=== PATIENT | female | born 1940 | race Caucasian/White ===

== ENCOUNTER 2016-08-18 08:43 | Day surgery (SDC) | payer MEDICARE ==
[~2016-08-18 08:43] MED LIST: DEXAMETHASONE SOD PHOSPHATE 10 MG/ML 1 ML VIAL IV ONE; FAMOTIDINE 20 MG/2 ML VIAL IV ONE; HYDROmorphone 1 MG/ML 1 ML SYRINGE IVP PRN; LACTATED RINGERS 1,000 ML IV SCH; LIDOCAINE 1% 20 ML VIAL (10MG/ML) FOR IV START INTRADERMA PRN; ONDANSETRON 4 MG/2 ML VIAL IVP ONE; Pre Op ABX Message 1 EACH MISC MISCELLANE ONE
[2016-08-18] MEDS: OXYMETAZOLINE 0.05% NASL SPRAY 15 ML NASAL ONE ×5 (09:50→10:15)
[2016-08-18 09:53] VITALS: RESP 16
[2016-08-18] MEDS ORDERED: ePHEDrine 50 MG/ML 1 ML AMP ONE (10:18)
[2016-08-18] MEDS ORDERED: SUCCINYLCHOLINE CHLORIDE 100 MG/5 ML SYR IV ONE (10:18)
[2016-08-18] MEDS ORDERED: PROPOFOL 10 MG/ML 20 ML VIAL IV ONE (10:18)
[2016-08-18] MEDS ORDERED: fentaNYL (PF) 50 MCG/ML 2 ML AMP ONE (10:18)
[2016-08-18] MEDS ORDERED: MIDAZOLAM 2 MG/2 ML VIAL ONE (10:18)
[2016-08-18] MEDS ORDERED: LIDOCAINE 1%-EPI 1:100,000 20 ML VIAL SQ ONE ×2 (10:32→10:41)
[2016-08-18] MEDS ORDERED: BACITRACIN 500 UNIT/GM OINT 28.4 GM TUBE TOPICAL ONE (10:41)
--- NOTE | 2016-08-18 10:51 | P.OP ---
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 Patient underwent induction of general anesthesia with oral endotracheal intubation without difficulty. The patient was prepped and draped in usual aseptic fashion. Full 0 endoscopic nasal examination was performed bilaterally with the above findings noted. It was elected to cauterize the left anterior septum with suction cautery selectively at a setting of 10. No focal lesion such as hemangioma was noted which may have been resolved from previous cauterization. Excellent hemostasis was noted and bacitracin ointment was placed. The patient was allowed to emerge from anesthesia having tolerated procedure well was extubated operating suite and transferred to postop recovery area in satisfactory condition.
[2016-08-18 11:00] VITALS: TEMP 96.8
[2016-08-18 11:52] VITALS: BP 159/71; PULSE 68
== END 2016-08-18 12:38 | disposition home or self-care (01) ==
LOC: OR 08:43
PROVIDERS: ATTEND Otolaryngology
DX: R04.0 Epistaxis (principal); E78.00 Pure hypercholesterolemia, unspecified; E11.9 Type 2 diabetes mellitus without complications; Z87.891 Personal history of nicotine dependence; Z79.899 Other long term (current) drug therapy; Z83.3 Family history of diabetes mellitus
CPT/HCPCS: 31238; J2250; J1100; J2405; J3010; J1170; J0330; J2704

== ENCOUNTER → 2019-02-05 | Outpatient (CLI) | payer MEDICARE ==
[2019-02-05 14:35] LABS: African American GFR (CKD) >90 (>60 ml/min/1.73 sqM); Blood Urea Nitrogen 18 mg/dL (7-17)
[2019-02-05 15:12] VITALS: RESP 14
--- NOTE | 2019-02-05 15:12 | CT ---
EXAMINATION TYPE: CT chest w con DATE OF EXAM: 02/05/2019 COMPARISON: None HISTORY: Chest pain CT DLP: 148.6 mGycm Automated exposure control for dose reduction was used. CONTRAST: CT scan of the chest is performed, patient injected with 100 mL of Isovue 300. FINDINGS: LUNGS: The lungs are grossly clear, there is no concerning parenchymal mass or nodule identified. Tin y subpleural nodules measuring less than 5 mm are noted. There is a bleb involving the left lower lob e. Subsegmental consolidation most typical of atelectasis. There is no pleural effusion or pneumotho rax seen. The tracheobronchial tree is patent. MEDIASTINUM: There are no greater than 1 cm hilar or mediastinal lymph nodes. No pericardial effusi on is seen. Mild atherosclerotic change of the aorta. Heart size at upper limits of normal. OTHER: Hypertrophic and multilevel degenerative disc disease noted. IMPRESSION: 1. No acute process. 2. There is a less than 5 mm subpleural nodule involving both lung apices to small to characterize bu t likely benign. One year follow-up exam could be obtained to confirm stability as clinically warrant ed. 3. Bleb noted within the left lower lobe.
[2019-02-05 15:47] VITALS: BP 170/80; PULSE 70
== END | disposition home or self-care (01) ==
LOC: RADCTMAIN 14:01
PROVIDERS: ATTEND Internal Medicine
DX: R91.1 Solitary pulmonary nodule (principal); R23.8 Other skin changes
CPT/HCPCS: 82565; 84520; 71260; 36415; Q9967

== ENCOUNTER 2020-08-08 15:45 | Emergency (ER) | payer MEDICARE ==
[2020-08-08 15:59] VITALS: RESP 16
--- NOTE | 2020-08-08 16:47 | XR ---
EXAMINATION TYPE: XR chest 2V DATE OF EXAM: 08/08/2020 COMPARISON: None INDICATION: Headache TECHNIQUE: Frontal and lateral views of the chest are obtained. FINDINGS: The heart size is normal. The pulmonary vasculature is normal. The lungs are clear. IMPRESSION: 1. No acute pulmonary process.
[2020-08-08 16:50] LABS: Basophils # (A) 0.2 k/uL (0-0.2); Basophils % (A) 2 %; Eosinophils # (A) 0.2 k/uL (0-0.7); Eosinophils % (A) 2 %; HCT 43.4 % (34.0-46.0); HGB 14.3 gm/dL (11.4-16.0); Lymphocytes # (A) 2.2 k/uL (1.0-4.8); Lymphocytes % (A) 22 %; MCH 30.1 pg (25.0-35.0); MCV 91.3 fL (80.0-100.0); Mean Platelet Volume 8.9; Monocytes # (A) 0.9 k/uL (0-1.0); Monocytes % (A) 9 %; Neutrophils # (A) 6.3 k/uL (1.3-7.7); Neutrophils % (A) 64 %; Platelet Count 369 k/uL (150-450); RBC 4.75 m/uL (3.80-5.40); RDW 12.4 % (11.5-15.5)
[2020-08-08 16:58] LABS: INR 0.9 (<1.2); Partial Thromboplastin Time 23.6 sec (22.0-30.0); Prothrombin Time 9.9 sec (9.0-12.0)
[2020-08-08 17:09] LABS: ALT 24 U/L (4-34); AST 28 U/L (14-36); African American GFR (CKD) >90 (>60 ml/min/1.73 sqM); Albumin 4.3 g/dL (3.5-5.0); Alkaline Phosphatase 57 U/L (38-126); Anion Gap 7 mmol/L; Blood Urea Nitrogen 21 mg/dL (7-17); Calcium 9.9 mg/dL (8.4-10.2); Carbon Dioxide 26 mmol/L (22-30); Chloride 103 mmol/L (98-107); Glucose 137 mg/dL (74-99); Non-African American GFR(CKD) 82 (>60 ml/min/1.73 sqM); Potassium 4.2 mmol/L (3.5-5.1); Sodium 136 mmol/L (137-145); Total Bilirubin 0.5 mg/dL (0.2-1.3); Total Protein 7.2 g/dL (6.3-8.2)
--- NOTE | 2020-08-08 17:41 | CT ---
EXAMINATION TYPE: CT brain wo con for TPA DATE OF EXAM: 08/08/2020 COMPARISON: None HISTORY: Headache and right sided arm numbness x2 days. CT DLP: 1090.8 mGycm Automated exposure control for dose reduction was used. There is mild cerebral atrophy. There is no mass effect nor midline shift. There is no sign of intrac ranial hemorrhage. The calvarium is intact. There is bilateral large Virchow-Cuong space in the tempo ral lobes. The skull base is intact. There is normal aeration of the mastoid sinuses. IMPRESSION: Mild atrophy. No acute intracranial abnormality.
--- NOTE | 2020-08-08 17:55 | CT ---
EXAMINATION TYPE: CT angio head neck DATE OF EXAM: 08/08/2020 COMPARISON: HISTORY: Headache and right sided arm numbness x2 days. CT DLP: 382.6 mGycm Automated exposure control for dose reduction was used. CONTRAST: Performed with IV Contrast, patient injected with 65ml mL of Isovue 370. Images were obtained from th e aortic arch to the vertex of the brain with 3-D post processed images. There is normal branching pattern of the great vessels on the aortic arch. There is arterial flow in both subclavian arteries. There is arterial flow in the common internal and external carotid arteries bilaterally. There is minimal plaque formation at the carotid artery bifurcations. There is lumen na rrowing less than 15%. There is arterial flow in both vertebral arteries which are fairly symmetric. There is arterial flow in the vertebrobasilar artery system. There is no evidence of carotid or verte bral artery aneurysm or dissection. There is arterial flow in the anterior middle and posterior cerebral arteries. There is no mass effec t. I see no evidence of intracranial aneurysm or neovascularity. There is normal contrast opacificati on of the venous sinuses. There is large left side posterior communicating artery. Left posterior cer ebral artery fills mostly through the posterior communicating artery. I see no evidence of intracrani al arterial stenosis. There are symmetric mildly ectatic intracranial internal carotid arteries. No f ocal aneurysm. IMPRESSION: No evidence of hemodynamic stenosis.
[2020-08-08] MEDS: ONDANSETRON 4 MG/2 ML VIAL IVP STA (17:56)
--- NOTE | 2020-08-08 17:56 | ED ---
Headache HPI - General Chief Complaint: Headache Stated Complaint: headache, parathesias Time Seen by Provider: 08/08/20 16:05 Mode of arrival: ambulatory Limitations: no limitations - History of Present Illness Initial Comments: 80yo female presenting today for cc of headache since 730-8PM. Patient states that lately she has been having flashes of light and squiggly lines at time in vision for the past humberto. pt states that this occurred last night before dinner but this time she had tingling in the right arm it felt as though it was asleep. patient states that that resolved after a few seconds and then a headache started. she states she had pain behind the eyes and by the temples bilaterally. Pt denies speech changes, diplopia, vision loss, nausea, vomiting, neck pain, weakness, sensation deficits. Pt states that she was not dizzy, did not feel off balance. pt denies fevers. patietn states the tingling nevre came back but that headache remained. pt states it is currently 5/10 aching all over. patient took tylenol prior to arrival. Pt denies any other symptoms aside from headache at this time. - Related Data Home Medications Medication Instructions Recorded Confirmed RX: ALPRAZolam [Xanax] 0.25 mg PO BID PRN 07/05/16 08/08/20 Simvastatin [Zocor] 20 mg PO HS 07/05/16 08/08/20 Cholecalciferol [Vitamin D3 (25 1,000 unit PO DAILY 08/08/20 08/08/20 Mcg = 1000 Iu)] Multivit-Min/Iron/Folic/Lutein 1 tab PO DAILY 08/08/20 08/08/20 [Centrum Silver Women Tablet] Pantoprazole [Protonix] 40 mg PO DAILY PRN 08/08/20 08/08/20 RX: Zinc 50 mg PO DAILY 08/08/20 08/08/20 RX: metFORMIN HCL [Glucophage] 500 mg PO HS 08/08/20 08/08/20 Vit C/E/Zn/Coppr/Lutein/Zeaxan 1 tab PO BID 08/08/20 08/08/20 [Preservision Areds 2 Softgel] Allergies Allergy/AdvReac Type Severity Reaction Status Date / Time No Known Allergies Allergy Verified 08/08/20 16:59 Review of Systems ROS Statement: Those systems with pertinent positive or pertinent negative responses have been documented in the HPI. ROS Other: All systems not noted in ROS Statement are negative. Past Medical History Past Medical History: Diabetes Mellitus, Hyperlipidemia, Osteoarthritis (OA) Additional Past Medical History / Comment(s): CURRENT ISSUE: SEVERAL NOSE BLEEDS OVER THE PAST SEVERAL MONTHS, HAS NEVER HAD THEM, DR. NEWMAN HAS CAUTERIZED IN OFFICE. 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 HISTORY IN FAMILY: CELIAC. History of Any Multi-Drug Resistant Organisms: None Reported Past Surgical History: Hysterectomy Additional Past Surgical History / Comment(s): Spleenectomy. Past Anesthesia/Blood Transfusion Reactions: No Reported Reaction Past Psychological History: Anxiety Smoking Status: Never smoker Past Alcohol Use History: None Reported Past Drug Use History: None Reported General Exam - General Exam Comments Initial Comments: General: The patient is awake and alert, in no distress Eye: +3 mm pupils are equal, round and reactive to light, extra-ocular movements are intact. No nystagmus. There is normal conjunctiva bilaterally. No signs of icterus. IOP8 OS and OD (OU) Ears, nose, mouth and throat: There are moist mucous membranes and no oral lesions. Neck: The neck is supple, there is no tenderness or JVD. Cardiovascular: There is a regular rate and rhythm. No murmur, rub or gallop is appreciated. Respiratory: Lungs are clear to auscultation, respirations are non-labored, breath sounds are equal. No wheezes, stridor, rales, or rhonchi. Gastrointestinal: Soft, non-distended, non-tender abdomen without masses or organomegaly noted. There is no rebound or guarding present. Musculoskeletal: Normal ROM, no tenderness. Strength 5/5. Sensation intact. Radial pulses equal bilaterally 2+. Neurological: A&O x 3. CN II-XII intact, memory intact to immediately, inter mediate and manager terminal recall. Able to follow simple verbal. Able to name a common object (pen). High quality, labial (pa) and lingual (la) speech. Low quality posterior pharynx/larynx (ga) voice sounds. Able to express general knowledge (days in a week). No hemineglect or inattention noted. Finger agnosia (-) and spatially oriented (identified L index finger touched R shoulder with L index finger). Light touch a sensation present over the face, chest, abdomen, back, UE bilaterally, and LE bilaterally. Able to localize point during point localization b/l and extinction. No visible bulk atrophy, hypertrophy, fasciculations, or myoclonus of the UE or LE b/l. Full PROM in UE and LE b/l. Bilateral muscle strength 5/5 for the following muscles: deltoid, biceps, triceps, brachioradialis, wrist extensors/flexor, hip flexor, hip abductors/adductors, hamstrings, quadriceps, feet dorsiflexors/plantar flexors. Finger to nose, finger to the examiners finger, and heel to santoro coordinated and accurate b/l. Coordinated and even demonstration of hand flip, finger to thumb, and toe tap b/l. Gait is coordinated and even in stride with tandem. (-) pronator drift. No nuchal rigidity. Skin: Skin is warm and dry and no rashes or lesions are noted. Psychiatric: Cooperative, appropriate mood & affect, normal judgment. Limitations: no limitations Course Vital Signs 08/08/20 08/08/20 15:53 18:03 Temperature 98.6 F 98.0 F Pulse Rate 90 80 Respiratory 16 16 Rate Blood Pressure 164/81 137/73 O2 Sat by Pulse 95 96 Oximetry Medical Decision Making - Medical Decision Making CT, CTA (-). RUSSELL resolved. Other symptoms resolved. parathesias lasted for only few moments. no current visual changes. hx of migraines. family history of complex migraines. pt has had increased screen time/sudoku. patient labs stable. ekg stable. troponin (-). no focalized exam findings. repeat exam no change. pt case discussed with Dr Henderson who is agreeable [facility]u adn return for recurrent symptoms. ddx felt most likely to be consistent with ocular/complex migraine. cannot r/o TIA> advised patient to initiate aspirin daily outpatient MRI, neurology/cardiology f/u with strict return parameters. pt agreeable to this care plan as well as discharge today. - Lab Data Result diagrams: 08/08/20 16:19 08/08/20 16:19 Lab Results 08/08/20 08/08/20 08/08/20 Range/Units 16:19 16:19 16:19 WBC 10.0 (3.8-10.6) k/uL RBC 4.75 (3.80-5.40) m/uL Hgb 14.3 (11.4-16.0) gm/dL Hct 43.4 (34.0-46.0) % MCV 91.3 (80.0-100.0) fL MCH 30.1 (25.0-35.0) pg MCHC 33.0 (31.0-37.0) g/dL RDW 12.4 (11.5-15.5) % Plt Count 369 (150-450) k/uL MPV 8.9 Neutrophils % 64 % Lymphocytes % 22 % Monocytes % 9 % Eosinophils % 2 % Basophils % 2 % Neutrophils # 6.3 (1.3-7.7) k/uL Lymphocytes # 2.2 (1.0-4.8) k/uL Monocytes # 0.9 (0-1.0) k/uL Eosinophils # 0.2 (0-0.7) k/uL Basophils # 0.2 (0-0.2) k/uL PT 9.9 (9.0-12.0) sec INR 0.9 (<1.2) APTT 23.6 (22.0-30.0) sec Sodium 136 L (137-145) mmol/L Potassium 4.2 (3.5-5.1) mmol/L Chloride 103 (98-107) mmol/L Carbon Dioxide 26 (22-30) mmol/L Anion Gap 7 mmol/L BUN 21 H (7-17) mg/dL Creatinine 0.67 (0.52-1.04) mg/dL Est GFR (CKD-EPI)AfAm >90 (>60 ml/min/1.73 sqM) Est GFR (CKD-EPI)NonAf 82 (>60 ml/min/1.73 sqM) Glucose 137 H (74-99) mg/dL Calcium 9.9 (8.4-10.2) mg/dL Total Bilirubin 0.5 (0.2-1.3) mg/dL AST 28 (14-36) U/L ALT 24 (4-34) U/L Alkaline Phosphatase 57 (38-126) U/L Troponin I (0.000-0.034) ng/mL Total Protein 7.2 (6.3-8.2) g/dL Albumin 4.3 (3.5-5.0) g/dL 08/08/20 Range/Units 16:19 WBC (3.8-10.6) k/uL RBC (3.80-5.40) m/uL Hgb (11.4-16.0) gm/dL Hct (34.0-46.0) % MCV (80.0-100.0) fL MCH (25.0-35.0) pg MCHC (31.0-37.0) g/dL RDW (11.5-15.5) % Plt Count (150-450) k/uL MPV Neutrophils % % Lymphocytes % % Monocytes % % Eosinophils % % Basophils % % Neutrophils # (1.3-7.7) k/uL Lymphocytes # (1.0-4.8) k/uL Monocytes # (0-1.0) k/uL Eosinophils # (0-0.7) k/uL Basophils # (0-0.2) k/uL PT (9.0-12.0) sec INR (<1.2) APTT (22.0-30.0) sec Sodium (137-145) mmol/L Potassium (3.5-5.1) mmol/L Chloride (98-107) mmol/L Carbon Dioxide (22-30) mmol/L Anion Gap mmol/L BUN (7-17) mg/dL Creatinine (0.52-1.04) mg/dL Est GFR (CKD-EPI)AfAm (>60 ml/min/1.73 sqM) Est GFR (CKD-EPI)NonAf (>60 ml/min/1.73 sqM) Glucose (74-99) mg/dL Calcium (8.4-10.2) mg/dL Total Bilirubin (0.2-1.3) mg/dL AST (14-36) U/L ALT (4-34) U/L Alkaline Phosphatase (38-126) U/L Troponin I <0.012 (0.000-0.034) ng/mL Total Protein (6.3-8.2) g/dL Albumin (3.5-5.0) g/dL Disposition Clinical Impression: Headache, Arm paresthesia, right Disposition: HOME SELF-CARE Condition: Good Instructions (If sedation given, give patient instructions): Acute Headache (ED) Additional Instructions: Please use medication as discussed. Please follow-up with family doctor in the next 2 days, take baby aspirin daily, please follow-up with cardiology and neurologist for outpatient MRI. return for any return parathesias/new symptoms/worsening headache. Please return to emergency room if the symptoms increase or worsen or for any other concerns. Is patient prescribed a controlled substance at d/c from ED?: No Referrals: Osmany Gregory MD [Primary Care Provider] - 1-2 days Time of Disposition: 18:10
[2020-08-08] MEDS: MORPHINE SULFATE 2 MG/ML SYRINGE IVP STA (17:57)
[2020-08-08 18:04] VITALS: BP 137/73; PULSE 80; TEMP 98
== END 2020-08-08 18:25 | disposition home or self-care (01) ==
LOC: EC 15:45
DX: R51.9 Headache, unspecified (principal); R20.2 Paresthesia of skin; E11.9 Type 2 diabetes mellitus without complications; F41.9 Anxiety disorder, unspecified; E78.5 Hyperlipidemia, unspecified; Z79.84 Long term (current) use of oral hypoglycemic drugs; Z79.899 Other long term (current) drug therapy; Z90.710 Acquired absence of both cervix and uterus; Z90.49 Acquired absence of other specified parts of digestive tract
CPT/HCPCS: 36415; 93005; 80053; 84484; 85025; 85610; 85730; 71046; 70496; 70450; 70498; 99284; 96374; 96375; J2405; J2270; Q9967

== ENCOUNTER → 2022-01-07 | Outpatient (CLI) | payer MEDICARE ==
--- NOTE | 2022-01-07 23:01 | BD ---
EXAMINATION TYPE: Axial Bone Density DATE OF EXAM: 01/07/2022 COMPARISON: NONE CLINICAL HISTORY: 81 years year old Female. ICD-10 CODE: Z13.820 ENCOUNTER FOR SCREENING FOR OSTEOPO ROSIS Height: 58.5 IN Weight: 118 LBS FRAX RISK QUESTIONS: Glucocorticoids (More than 3mos): 5.0 MG /DAY FOR 4 MONTHS (Ex: prednisone, prednisolone, methylprednisolone, dexamethasone, and hydrocortisone). RISK FACTORS HISTORY OF: Active: YES Postmenopausal woman: AGE 54 Take estrogen and/or progesterone medications: NOT NOW How lon YEARS MEDICATIONS: Prednisone or other steroids: 5.0 MG /DAY FOR 4 MONTHS Additional Medications: VIT D,CALCIUM, 5.0 MG /PER DAY OF PREDNISONE, CHOLESTEROL MEDS, MULTI VIT, EY E MEDS, EXAM MEASUREMENTS: Bone mineral densitometry was performed using the [employer] System. Bone mineral density as measured about the Lumbar spine is: ----- L1-L4(G/cm2): 1.011 T Score Values are as follows: ----- L1: -2.0 ----- L2: -1.4 ----- L3: -1.4 ----- L4: -1.0 ----- L1-L4: -1.4 Bone mineral density BASELINE Bone mineral density about the R hip (g/cm2): 0.745 Bone mineral density about the L hip (g/cm2): 0.776 T Score values are as follows: -----R Neck: -2.1 -----L Neck: -1.9 -----R Total: -2.5 -----L Total: -2.2 Bone mineral density BASELINE FRAX%s: The graph provided illustrates a 24.2 chance for a major osteoporotic fx and a 9.1 chance for the hips probability for fx in 10 years time. IMPRESSION: Osteopenia (T Score between -2.5 and -1). There is slightly increased risk of fracture and the patient may be considered for treatment. Re-Screen 2-5 years. NOTE: T-SCORE=SD OF THE YOUNG ADULT MEAN.
== END | disposition home or self-care (01) ==
LOC: RADBDWWP 13:58
PROVIDERS: ATTEND Internal Medicine Rheumatology
DX: Z13.820 Encounter for screening for osteoporosis (principal); M85.89 Other specified disorders of bone density and structure, multiple sites
CPT/HCPCS: 77080

== ENCOUNTER 2023-09-01 06:26 | Emergency (ER) | payer MEDICARE ==
--- NOTE | 2023-09-01 06:48 | ED ---
URI HPI - General Chief Complaint: Upper Respiratory Infection Stated Complaint: Covid+ Time Seen by Provider: 09/01/23 06:46 Source: patient, RN notes reviewed Mode of arrival: ambulatory Limitations: no limitations - History of Present Illness Initial Comments: 83-year-old female presents emergency department chief plaint cough and cold- like symptoms. Patient states she has been sick for 2 days. Patient states that she saw her primary care physician when it started and was given amoxicillin. Patient states that she tested negative for COVID at that time but woke up around 330 not feeling well today and states that she tested positive for COVID-19. Patient states she has sore throat body aches congestion. Denies any chest pain no significant shortness of breath no nausea vomit diarrhea constipation. - Related Data Home Medications Medication Instructions Recorded Confirmed ALPRAZolam [Xanax] 0.25 mg PO BID PRN 07/05/16 08/08/20 Simvastatin [Zocor] 20 mg PO HS 07/05/16 08/08/20 Cholecalciferol [Vitamin D3 (25 1,000 unit PO DAILY 08/08/20 08/08/20 Mcg = 1000 Iu)] Multivit-Min/Iron/Folic/Lutein 1 tab PO DAILY 08/08/20 08/08/20 [Centrum Silver Women Tablet] Pantoprazole [Protonix] 40 mg PO DAILY PRN 08/08/20 08/08/20 Vit C/E/Zn/Coppr/Lutein/Zeaxan 1 tab PO BID 08/08/20 08/08/20 [Preservision Areds 2 Softgel] Zinc 50 mg PO DAILY 08/08/20 08/08/20 metFORMIN HCL [Glucophage] 500 mg PO HS 08/08/20 08/08/20 Previous Rx's Medication Instructions Recorded Amoxicillin 1,000 mg PO Q8H #42 capsule 12/12/21 Nirmatrelvir/Ritonavir [Paxlovid 1 each PO DIRECTED #1 pack 09/01/23 150-100 mg Dose Pack] Allergies Allergy/AdvReac Type Severity Reaction Status Date / Time No Known Allergies Allergy Verified 09/01/23 06:36 Review of Systems ROS Statement: Those systems with pertinent positive or pertinent negative responses have been documented in the HPI. ROS Other: All systems not noted in ROS Statement are negative. Past Medical History Past Medical History: Diabetes Mellitus, Hyperlipidemia, Osteoarthritis (OA) Additional Past Medical History / Comment(s): . 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 HISTORY IN FAMILY: CELIAC. History of Any Multi-Drug Resistant Organisms: None Reported Past Surgical History: Hysterectomy Additional Past Surgical History / Comment(s): Spleenectomy. Past Anesthesia/Blood Transfusion Reactions: No Reported Reaction Past Psychological History: Anxiety Smoking Status: Never smoker Past Alcohol Use History: None Reported Past Drug Use History: None Reported General Exam Limitations: no limitations General appearance: alert, in no apparent distress Head exam: Present: atraumatic, normocephalic, normal inspection Eye exam: Present: normal appearance, PERRL, EOMI. Absent: scleral icterus, conjunctival injection, periorbital swelling ENT exam: Present: normal exam, mucous membranes moist Neck exam: Present: normal inspection, full ROM. Absent: tenderness, meningismus, lymphadenopathy Respiratory exam: Present: normal lung sounds bilaterally. Absent: respiratory distress, wheezes, rales, rhonchi, stridor Cardiovascular Exam: Present: normal rhythm, tachycardia, normal heart sounds. Absent: systolic murmur, diastolic murmur, rubs, gallop, clicks GI/Abdominal exam: Present: soft, normal bowel sounds. Absent: distended, tenderness, guarding, rebound, rigid Course Vital Signs 09/01/23 09/01/23 09/01/23 06:36 08:51 08:55 Temperature 98.4 F 98.1 F Pulse Rate 110 H 104 H Respiratory 20 18 18 Rate Blood Pressure 146/81 138/78 O2 Sat by Pulse 94 L 95 Oximetry Medical Decision Making - Medical Decision Making was pt. sent in by a medical professional or institution (, PA, EXTRAS CASTING DIRECTOR, urgent care, hospital, or halfway...) When possible be specific @ -No Did you speak to anyone other than the patient for history (EMS, parent, family, police, friend...)? What history was obtained from this source @ -No Did you review nursing and triage notes (agree or disagree)? Why? @ -I reviewed and agree with nursing and triage notes Were old charts reviewed (outside hosp., previous admission, EMS record, old EKG, old radiological studies, urgent care reports/EKG's, halfway records)? Report findings @ -No old charts were reviewed Differential Diagnosis (chest pain, altered mental status, abdominal pain women, abdominal pain men, vaginal bleeding, weakness, fever, dyspnea, syncope, headache, dizziness, GI bleed, back pain, seizure, CVA, palpatations, mental health, musculoskeletal)? @ -COVID 19, RSV, influenza, pneumonia, acute bronchitis, URI, this list is not all inclusive EKG interpreted by me (3pts min.). @ -None X-rays interpreted by me (1pt min.). @ -Chest x-ray showed no acute cardiopulmonary process CT interpreted by me (1pt min.). @ -None done U/S interpreted by me (1pt. min.). @ -None done What testing was considered but not performed or refused? (CT, X-rays, U/S, labs)? Why? @ -None What meds were considered but not given or refused? Why? @ -None Did you discuss the management of the patient with other professionals (professionals i.e. , PA, EXTRAS CASTING DIRECTOR, lab, RT, psych nurse, health and social care teacher, asbestos wire finisher, teacher, aoc director combat operations officer, business case analyst)? Give summary @ -No Was smoking cessation discussed for >3mins.? @ -No Was critical care preformed (if so, how long)? @ -No Were there social determinants of health that impacted care today? How? (Homelessness, low income, unemployed, alcoholism, drug addiction, transportation, low edu. Level, literacy, decrease access to med. care, snf, rehab)? @ -No Was there de-escalation of care discussed even if they declined (Discuss DNR or withdrawal of care, Hospice)? DNR status @ -No What co-morbidities impacted this encounter? (DM, HTN, Smoking, COPD, CAD, Cancer, CVA, ARF, Chemo, Hep., AIDS, mental health diagnosis, sleep apnea, morbid obesity)? @ -None Was patient admitted / discharged? Hospital course, mention meds given and route, prescriptions, significant lab abnormalities, going to OR and other pertinent info. @ -Patient tested positive for COVID-19 outpatient patient is vitally stable patient will be discharged with Paxlovid return pressure discussed. Undiagnosed new problem with uncertain prognosis? @ -No Drug Therapy requiring intensive monitoring for toxicity (Heparin, Nitro, Insulin, Cardizem)? @ -No Were any procedures done? @ -No Diagnosis/symptom? @ -[COVID 19 Acute, or Chronic, or Acute on Chronic? @ -Acute Uncomplicated (without systemic symptoms) or Complicated (systemic symptoms)? @ -[Uncomplicated Side effects of treatment? @ -[No Exacerbation, Progression, or Severe Exacerbation? @ -No Poses a threat to life or bodily function? How? (Chest pain, [place], [place], pneumonia, PE, COPD, DKA, ARF, appy, cholecystitis, CVA, Diverticulitis, Homicidal, Suicidal, threat to staff... and all critical care pts) @ -No - Lab Data Result diagrams: 09/01/23 07:39 09/01/23 07:39 Lab Results 09/01/23 09/01/23 Range/Units 07:39 07:39 WBC 9.5 (3.8-10.6) k/uL RBC 4.33 (3.80-5.40) m/uL Hgb 12.8 (11.4-16.0) gm/dL Hct 39.5 (34.0-46.0) % MCV 91.1 (80.0-100.0) fL MCH 29.5 (25.0-35.0) pg MCHC 32.3 (31.0-37.0) g/dL RDW 12.8 (11.5-15.5) % Plt Count 283 (150-450) k/uL MPV 8.3 Neutrophils % 61 % Lymphocytes % 25 % Monocytes % 10 % Eosinophils % 1 % Basophils % 1 % Neutrophils # 5.8 (1.3-7.7) k/uL Lymphocytes # 2.4 (1.0-4.8) k/uL Monocytes # 0.9 (0-1.0) k/uL Eosinophils # 0.1 (0-0.7) k/uL Basophils # 0.1 (0-0.2) k/uL Sodium 135 L (137-145) mmol/L Potassium 3.9 (3.5-5.1) mmol/L Chloride 100 (98-107) mmol/L Carbon Dioxide 26 (22-30) mmol/L Anion Gap 9 mmol/L BUN 17 (7-17) mg/dL Creatinine 0.82 (0.52-1.04) mg/dL Est GFR (CKD-EPI)AfAm 76 (>60 ml/min/1.73 sqM) Est GFR (CKD-EPI)NonAf 66 (>60 ml/min/1.73 sqM) Glucose 189 H (74-99) mg/dL Calcium 9.1 (8.4-10.2) mg/dL Disposition Clinical Impression: COVID-19 Disposition: HOME SELF-CARE Condition: Stable Instructions (If sedation given, give patient instructions): COVID-19 (Coronavirus Disease 2019) (ED) Additional Instructions: Please return to the Emergency Department if symptoms worsen or any other concerns. Prescriptions: Nirmatrelvir/Ritonavir [Paxlovid 150-100 mg Dose Pack] 1 each PO DIRECTED #1 pack Is patient prescribed a controlled substance at d/c from ED?: No Referrals: Eulogio Mathew MD [Primary Care Provider] - 1-2 days Time of Disposition: 08:37
--- NOTE | 2023-09-01 07:17 | XR ---
EXAM: XR Chest, 2 Views CLINICAL HISTORY: ITS.REASON XR Reason: sob TECHNIQUE: Frontal and lateral views of the chest. COMPARISON: 12/12/21 FINDINGS: Lungs: Unremarkable. No consolidation. Pleural space: Unremarkable. No pneumothorax. Heart: Unremarkable. No cardiomegaly. Mediastinum: Unremarkable. Normal mediastinal contour. Bones/joints: Mild degenerative changes of the thoracic spine. No acute fracture. IMPRESSION: No acute findings in the chest.
[2023-09-01 07:51] LABS: Basophils # (A) 0.1 k/uL (0-0.2); Basophils % (A) 1 %; Eosinophils # (A) 0.1 k/uL (0-0.7); Eosinophils % (A) 1 %; HCT 39.5 % (34.0-46.0); HGB 12.8 gm/dL (11.4-16.0); Lymphocytes # (A) 2.4 k/uL (1.0-4.8); Lymphocytes % (A) 25 %; MCH 29.5 pg (25.0-35.0); MCHC 32.3 g/dL (31.0-37.0); MCV 91.1 fL (80.0-100.0); Mean Platelet Volume 8.3; Monocytes # (A) 0.9 k/uL (0-1.0); Monocytes % (A) 10 %; Neutrophils # (A) 5.8 k/uL (1.3-7.7); Neutrophils % (A) 61 %; Platelet Count 283 k/uL (150-450); RBC 4.33 m/uL (3.80-5.40); RDW 12.8 % (11.5-15.5); WBC 9.5 k/uL (3.8-10.6)
[2023-09-01 08:10] LABS: African American GFR (CKD) 76 (>60 ml/min/1.73 sqM); Anion Gap 9 mmol/L; Blood Urea Nitrogen 17 mg/dL (7-17); Calcium 9.1 mg/dL (8.4-10.2); Carbon Dioxide 26 mmol/L (22-30); Chloride 100 mmol/L (98-107); Glucose 189 mg/dL (74-99); Non-African American GFR(CKD) 66 (>60 ml/min/1.73 sqM); Potassium 3.9 mmol/L (3.5-5.1); Sodium 135 mmol/L (137-145)
[2023-09-01 09:12] VITALS: BP 138/78; PULSE 104; RESP 18; TEMP 98.1
== END 2023-09-01 08:55 | disposition home or self-care (01) ==
LOC: EC 06:26
DX: U07.1 COVID-19 (principal); E11.9 Type 2 diabetes mellitus without complications; E78.5 Hyperlipidemia, unspecified; F41.9 Anxiety disorder, unspecified; Z79.84 Long term (current) use of oral hypoglycemic drugs; Z79.899 Other long term (current) drug therapy
CPT/HCPCS: 36415; 71046; 80048; 85025; 99283

== ENCOUNTER 2023-10-28 09:51 | Emergency (ER) | payer MEDICARE ==
[2023-10-28 10:08] VITALS: RESP 18
--- NOTE | 2023-10-28 10:34 | ED ---
Nausea/Vomiting/Diarrhea HPI - General Chief complaint: Nausea/Vomiting/Diarrhea Stated complaint: Abd Pain Time Seen by Provider: 10/28/23 10:33 Source: patient, family, RN notes reviewed Mode of arrival: ambulatory Limitations: no limitations - History of Present Illness Initial comments: Patient is an 83-year-old female presented to the ER with chief complaint of diarrhea. Patient states this been going on since 10/21/23. She reports she has tried taking Imodium without relief. She was seen by PCP, Dr. Hobson, who advised her to start taking probiotics twice daily. She has been taking Imodium and probiotics twice daily without relief. She states she has not really had an appetite and has been feeling nauseous. She reports a gas pressure sensation in her abdomen especially in the lower quadrants. Pain increased after eating. She states some of her bowel movements have been having speckled red blood. Not on blood thinners. Denies fevers but endorses chills. Denies vomiting. 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 Hx of hiatal hernia. Last course in August 2023. Denies any urinary complaints, peripheral edema, chest pain, shortness of breath. - Related Data Home Medications Medication Instructions Recorded Confirmed ALPRAZolam [Xanax] 0.125 - 0.25 mg PO BID PRN 07/05/16 10/28/23 Multivit-Min/Iron/Folic/Lutein 1 tab PO DAILY 08/08/20 10/28/23 [Centrum Silver Women Tablet] Pantoprazole [Protonix] 40 mg PO DAILY PRN 08/08/20 10/28/23 Vit C/E/Zn/Coppr/Lutein/Zeaxan 1 tab PO BID 08/08/20 10/28/23 [Preservision Areds 2 Softgel] Bifidobacterium Infantis [Align] 4 mg PO BID 10/28/23 10/28/23 Calcium Carbonate [Calcium] 600 mg PO Q2D 10/28/23 10/28/23 Cholecalciferol [Vitamin D3 (25 25 mcg PO DAILY 10/28/23 10/28/23 Mcg = 1000 Iu)] Collagen Powder 2 scoop PO DAILY 10/28/23 10/28/23 Loperamide [Imodium] 2 mg PO BID 10/28/23 10/28/23 Loperamide [Imodium] 2 mg PO BID PRN 10/28/23 10/28/23 [place]-3/Dha/Epa/Fish Oil [Fish Oil 1 cap PO Q2D 10/28/23 10/28/23 1,000 mg Softgel] Rosuvastatin Calcium 5 mg PO W/LUNCH 10/28/23 10/28/23 metFORMIN HCL 500 mg PO DIRECTED 10/28/23 10/28/23 Previous Rx's Medication Instructions Recorded Amoxic-Pot Clav 875-125Mg 1 tab PO TID 5 Days #15 tab 10/28/23 [Augmentin 875-125] Allergies Allergy/AdvReac Type Severity Reaction Status Date / Time No Known Allergies Allergy Verified 10/28/23 13:09 Review of Systems ROS Statement: Those systems with pertinent positive or pertinent negative responses have been documented in the HPI. ROS Other: All systems not noted in ROS Statement are negative. Past Medical History Past Medical History: Diabetes Mellitus, Hyperlipidemia, Osteoarthritis (OA) Additional Past Medical History / Comment(s): . 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 HISTORY IN FAMILY: CELIAC. History of Any Multi-Drug Resistant Organisms: None Reported Past Surgical History: Hysterectomy Additional Past Surgical History / Comment(s): Spleenectomy. hiatal hernia Past Anesthesia/Blood Transfusion Reactions: No Reported Reaction Past Psychological History: Anxiety Smoking Status: Never smoker Past Alcohol Use History: None Reported Past Drug Use History: None Reported General Exam General appearance: alert, in no apparent distress Head exam: Present: atraumatic, normocephalic, normal inspection Eye exam: Present: normal appearance, PERRL, EOMI. Absent: scleral icterus, conjunctival injection, periorbital swelling Respiratory exam: Present: normal lung sounds bilaterally. Absent: respiratory distress, wheezes, rales, rhonchi, stridor Cardiovascular Exam: Present: regular rate, normal rhythm, normal heart sounds. Absent: systolic murmur, diastolic murmur, rubs, gallop, clicks GI/Abdominal exam: Present: soft, tenderness (RLQ/LLQ), normal bowel sounds. Absent: distended, guarding, rebound, rigid Rectal exam: Present: normal inspection, normal rectal tone Neurological exam: Present: alert, oriented X3, CN II-XII intact Psychiatric exam: Present: normal affect, normal mood Skin exam: Present: warm, dry, intact, normal color. Absent: rash Course Vital Signs 10/28/23 10/28/23 10/28/23 09:55 12:13 14:05 Temperature 98 F 97.9 F Pulse Rate 108 H 83 82 Respiratory 18 18 18 Rate Blood Pressure 152/87 130/73 115/70 O2 Sat by Pulse 96 96 98 Oximetry Medical Decision Making - Medical Decision Making Was pt. sent in by a medical professional or institution (, PA, HEREDITARY CANCER PROGRAM COORDINATOR, urgent care, hospital, or long-term...) When possible be specific @ -No Did you speak to anyone other than the patient for history (EMS, parent, family, police, friend...)? What history was obtained from this source @ -No Did you review nursing and triage notes (agree or disagree)? Why? @ -I reviewed and agree with nursing and triage notes Were old charts reviewed (outside hosp., previous admission, EMS record, old EKG, old radiological studies, urgent care reports/EKG's, long-term records)? Report findings @ -No old charts were reviewed Differential Diagnosis (chest pain, altered mental status, abdominal pain women, abdominal pain men, vaginal bleeding, weakness, fever, dyspnea, syncope, headache, dizziness, GI bleed, back pain, seizure, CVA, palpatations, mental health, musculoskeletal)? @Differential Abdominal Pain Women: Appendicitis, Cholecystitis, diverticulosis, ischemic bowel, pancreatitis, hepatitis, UTI, gastroenteritis, AAA, incarcerated hernia, bowel obstruction, constipation, inflammatory bowel, hepatitis, peptic ulcer disease, splenic infarction, perforated viscus, vulvitis, ovarian torsion, PID, kidney stone, placenta abruption, this is not meant to be an all-inclusive list EKG interpreted by me (3pts min.). @- None X-rays interpreted by me (1pt min.). @ -None done CT interpreted by me (1pt min.). @ -CT abdomen pelvis significant for diffuse thickening of the wall of the colon greatest in the sigmoid where there is marked diverticulosis. Ischemic bowel cannot be excluded but there is no stenosis or filling defects of the visualized superior mesenteric artery or inferior mesenteric artery. U/S interpreted by me (1pt. min.). @ -None done What testing was considered but not performed or refused? (CT, X-rays, U/S, labs)? Why? @ -C. difficile testing was considered patient was unable to provide stool sa mple What meds were considered but not given or refused? Why? @ -None Did you discuss the management of the patient with other professionals (professionals i.e. , PA, HEREDITARY CANCER PROGRAM COORDINATOR, lab, RT, psych nurse, high school social studies teacher, disability manager, teacher, special forces warrant officer, shoe caser)? Give summary @ -No Was smoking cessation discussed for >3mins.? @ -No Was critical care preformed (if so, how long)? @ -No Were there social determinants of health that impacted care today? How? (Homelessness, low income, unemployed, alcoholism, drug addiction, transportation, low edu. Level, literacy, decrease access to med. care, custodial, rehab)? @ -No Was there de-escalation of care discussed even if they declined (Discuss DNR or withdrawal of care, Hospice)? DNR status @ -No What co-morbidities impacted this encounter? (DM, HTN, Smoking, COPD, CAD, Cancer, CVA, ARF, Chemo, Hep., AIDS, mental health diagnosis, sleep apnea, morb id obesity)? @ -None Was patient admitted / discharged? Hospital course, mention meds given and rou te, prescriptions, significant lab abnormalities, going to OR and other pertinent info. @ -Discharge. Patient is an 83-year-old female presented to the ER with chief complaint of diarrhea and abdominal pain. History and physical exam completed. Vital stable. Patient in no signs of acute distress and nontoxic-appearing. Patient was mildly tender to lower quadrants. Rectal exam completed and chaperoned by Qiana Casey RN. Labs obtained unimpressive. Hyperglycemia believed to be due to from patient holding metformin due to diarrhea. This was instructed by PCP, Dr. Mathew. Urine without signs of infection. Stool occult negative. Flu, RSV, COVID-negative. CT abdomen pelvis significant for diffuse thickening of the wall of the colon greatest in the sigmoid where there is marked diverticulosis. Patient received IV fluids, Zofran and by mouth Lomotil for symptom control in the ER. Results discussed with patient, all questions answered. Extensive conversation with follow-up and return parameters discussed. Due to concern of infection and possible diverticulitis Augmentin was prescribed. I instructed patient on completing full course of antibiotics. Patient was unable to provide stool sample for C.diff testing. Return parameters discussed. Patient discharged stable condition with follow-up to GI/PCP. GI referral given. Patient and family, at bedside, verbally expressed understanding and agreement with care plan. case discussed with ED attending, Dr. Kulkarni. Undiagnosed new problem with uncertain prognosis? @ -No Drug Therapy requiring intensive monitoring for toxicity (Heparin, Nitro, Insulin, Cardizem)? @ -No Were any procedures done? @ -No Diagnosis/symptom? @ -Diverticulitis Acute, or Chronic, or Acute on Chronic? @ -Acute Uncomplicated (without systemic symptoms) or Complicated (systemic symptoms)? @ -Uncomplicated Side effects of treatment? @ -No Exacerbation, Progression, or Severe Exacerbation? @ -No Poses a threat to life or bodily function? How? (Chest pain, [place], [place], pneumonia, PE, COPD, DKA, ARF, appy, cholecystitis, CVA, Diverticulitis, Homicidal, Suicidal, threat to staff... and all critical care pts) @ -No - Lab Data Result diagrams: 10/28/23 10:35 10/28/23 10:35 Lab Results 10/28/23 10/28/23 10/28/23 Range/Units 10:35 10:35 10:35 WBC 9.6 (3.8-10.6) k/uL RBC 4.78 (3.80-5.40) m/uL Hgb 13.8 (11.4-16.0) gm/dL Hct 43.2 (34.0-46.0) % MCV 90.3 (80.0-100.0) fL MCH 28.8 (25.0-35.0) pg MCHC 31.9 (31.0-37.0) g/dL RDW 13.0 (11.5-15.5) % Plt Count 457 H (150-450) k/uL MPV 9.8 Neutrophils % 53 % Lymphocytes % 26 % Monocytes % 15 % Eosinophils % 4 % Basophils % 0 % Neutrophils # 5.0 (1.3-7.7) k/uL Lymphocytes # 2.5 (1.0-4.8) k/uL Monocytes # 1.4 H (0-1.0) k/uL Eosinophils # 0.4 (0-0.7) k/uL Basophils # 0.0 (0-0.2) k/uL Sodium 139 (137-145) mmol/L Potassium 4.0 (3.5-5.1) mmol/L Chloride 107 (98-107) mmol/L Carbon Dioxide 20 L (22-30) mmol/L Anion Gap 12 mmol/L BUN 25 H (7-17) mg/dL Creatinine 0.87 (0.52-1.04) mg/dL Est GFR (CKD-EPI)AfAm 70 (>60 ml/min/1.73 sqM) Est GFR (CKD-EPI)NonAf 61 (>60 ml/min/1.73 sqM) Glucose 197 H (74-99) mg/dL Plasma Lactic Acid Yuriy (0.7-2.0) mmol/L Calcium 9.7 (8.4-10.2) mg/dL Total Bilirubin 0.6 (0.2-1.3) mg/dL AST 23 (14-36) U/L ALT 18 (4-34) U/L Alkaline Phosphatase 70 (38-126) U/L Total Protein 7.3 (6.3-8.2) g/dL Albumin 4.1 (3.5-5.0) g/dL Amylase 47 (30-110) U/L Lipase 58 (23-300) U/L Urine Color Urine Appearance (Clear) Urine pH (5.0-8.0) Ur Specific [place] (1.001-1.035) Urine Protein (Negative) Urine Glucose (UA) (Negative) Urine Ketones (Negative) Urine Blood (Negative) Urine Nitrite (Negative) Urine Bilirubin (Negative) Urine Urobilinogen (<2.0) mg/dL Ur Leukocyte Esterase (Negative) Urine RBC (0-5) /hpf Urine WBC (0-5) /hpf Ur Squamous Epith Cells (0-4) /hpf Urine Bacteria (None) /hpf Urine Mucus (None) /hpf Stool Occult Blood Negative (Negative) Influenza Type A (PCR) (Not Detectd) Influenza Type B (PCR) (Not Detectd) RSV (PCR) (Not Detectd) SARS-CoV-2 (PCR) (Not Detectd) 10/28/23 10/28/23 10/28/23 Range/Units 10:35 10:35 13:17 WBC (3.8-10.6) k/uL RBC (3.80-5.40) m/uL Hgb (11.4-16.0) gm/dL Hct (34.0-46.0) % MCV (80.0-100.0) fL MCH (25.0-35.0) pg MCHC (31.0-37.0) g/dL RDW (11.5-15.5) % Plt Count (150-450) k/uL MPV Neutrophils % % Lymphocytes % % Monocytes % % Eosinophils % % Basophils % % Neutrophils # (1.3-7.7) k/uL Lymphocytes # (1.0-4.8) k/uL Monocytes # (0-1.0) k/uL Eosinophils # (0-0.7) k/uL Basophils # (0-0.2) k/uL Sodium (137-145) mmol/L Potassium (3.5-5.1) mmol/L Chloride (98-107) mmol/L Carbon Dioxide (22-30) mmol/L Anion Gap mmol/L BUN (7-17) mg/dL Creatinine (0.52-1.04) mg/dL Est GFR (CKD-EPI)AfAm (>60 ml/min/1.73 sqM) Est GFR (CKD-EPI)NonAf (>60 ml/min/1.73 sqM) Glucose (74-99) mg/dL Plasma Lactic Acid Yuriy 1.2 (0.7-2.0) mmol/L Calcium (8.4-10.2) mg/dL Total Bilirubin (0.2-1.3) mg/dL AST (14-36) U/L ALT (4-34) U/L Alkaline Phosphatase (38-126) U/L Total Protein (6.3-8.2) g/dL Albumin (3.5-5.0) g/dL Amylase (30-110) U/L Lipase (23-300) U/L Urine Color Colorless Urine Appearance Clear (Clear) Urine pH 5.0 (5.0-8.0) Ur Specific [place] >1.050 H (1.001-1.035) Urine Protein Negative (Negative) Urine Glucose (UA) Negative (Negative) Urine Ketones Negative (Negative) Urine Blood Negative (Negative) Urine Nitrite Negative (Negative) Urine Bilirubin Negative (Negative) Urine Urobilinogen <2.0 (<2.0) mg/dL Ur Leukocyte Esterase Large H (Negative) Urine RBC 3 (0-5) /hpf Urine WBC 5 (0-5) /hpf Ur Squamous Epith Cells 4 (0-4) /hpf Urine Bacteria Rare H (None) /hpf Urine Mucus Rare H (None) /hpf Stool Occult Blood (Negative) Influenza Type A (PCR) Not Detected (Not Detectd) Influenza Type B (PCR) Not Detected (Not Detectd) RSV (PCR) Not Detected (Not Detectd) SARS-CoV-2 (PCR) Not Detected (Not Detectd) - Radiology Data Radiology results: report reviewed, image reviewed Disposition Clinical Impression: Diverticulitis, Diarrhea Disposition: HOME SELF-CARE Condition: Stable Instructions (If sedation given, give patient instructions): Diverticulitis (DC), Acute Diarrhea (ED) Additional Instructions: Please complete full course of Augmentin. Follow-up with GI, Dr. Flores, and PCP. Return to the ER for any new or worsening concerns. Prescriptions: Amoxic-Pot Clav 875-125Mg [Augmentin 875-125] 1 tab PO TID 5 Days #15 tab Is patient prescribed a controlled substance at d/c from ED?: No Referrals: Eulogio Mathew MD [Primary Care Provider] - 1-2 days Monica Flores MD [STAFF PHYSICIAN] - 1-2 days Time of Disposition: 13:55
[2023-10-28] MEDS: ONDANSETRON 4 MG/2 ML VIAL IVP STA (10:37)
[2023-10-28] MEDS: SODIUM CHLORIDE 0.9% 500 ML 500 ML IV STA (10:37)
[2023-10-28] MEDS: DIPHENOX-ATROP 2.5-0.025 MG 1 EACH TAB PO STA (10:38)
[2023-10-28 11:03] LABS: Basophils % (A) 0 %; Eosinophils # (A) 0.4 k/uL (0-0.7); Eosinophils % (A) 4 %; HCT 43.2 % (34.0-46.0); HGB 13.8 gm/dL (11.4-16.0); Lymphocytes # (A) 2.5 k/uL (1.0-4.8); Lymphocytes % (A) 26 %; MCH 28.8 pg (25.0-35.0); MCHC 31.9 g/dL (31.0-37.0); MCV 90.3 fL (80.0-100.0); Mean Platelet Volume 9.8; Monocytes # (A) 1.4 k/uL (0-1.0); Monocytes % (A) 15 %; Neutrophils % (A) 53 %; Platelet Count 457 k/uL (150-450); RBC 4.78 m/uL (3.80-5.40); WBC 9.6 k/uL (3.8-10.6)
[2023-10-28 11:37] LABS: ALT 18 U/L (4-34); AST 23 U/L (14-36); African American GFR (CKD) 70 (>60 ml/min/1.73 sqM); Albumin 4.1 g/dL (3.5-5.0); Alkaline Phosphatase 70 U/L (38-126); Amylase 47 U/L (30-110); Anion Gap 12 mmol/L; Blood Urea Nitrogen 25 mg/dL (7-17); Calcium 9.7 mg/dL (8.4-10.2); Carbon Dioxide 20 mmol/L (22-30); Chloride 107 mmol/L (98-107); Glucose 197 mg/dL (74-99); Lipase 58 U/L (23-300); Non-African American GFR(CKD) 61 (>60 ml/min/1.73 sqM); Sodium 139 mmol/L (137-145); Total Bilirubin 0.6 mg/dL (0.2-1.3); Total Protein 7.3 g/dL (6.3-8.2)
--- NOTE | 2023-10-28 12:29 | CT ---
EXAMINATION TYPE: CT abdomen pelvis w con DATE OF EXAM: 10/28/2023 COMPARISON: None HISTORY: abdominal pain and diarrhea x [address] DLP: 549 mGycm Automated exposure control for dose reduction was used. TECHNIQUE: Helical acquisition of images was performed from the lung bases through the pelvis. CONTRAST: Performed without Oral Contrast and with IV Contrast, patient injected with 100 ml mL of Isovue 300. FINDINGS: The lung bases are clear. There is a small hiatal hernia. Gallbladder is unremarkable and there are no gallstones, wall thickening, distention or pericholecyst ic fluid. There is no biliary ductal dilatation. There is no focal mass organomegaly involving the liver, pancreas or adrenal glands. 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 There is no retroperitoneal adenopathy or hemorrhage in the caliber of the abdominal aorta is normal. The bowel loops are normal in caliber there's no evidence of obstruction. There is diffuse thickening of the all of the colon which becomes thicker in the distal descending colon and sigmoid colon. Ther e is marked diverticulosis and marked thickening of the bowel wall in the sigmoid colon. There is no inflammatory change in the pericolic fat. There is no abscess. There is no free intraperitoneal air o r fluid. There is no pelvic mass or adenopathy. There is surgical absence of the uterus. No focal osseous lesions are seen. IMPRESSION: Diffuse thickening of the wall of the colon greatest in the sigmoid colon where there is marked diver ticulosis. Findings are nonspecific and could represent ischemic bowel, acute diverticulitis or infla mmatory bowel disease. Although ischemic bowel cannot be excluded, there is no stenosis or filling de fects within the visualized superior mesenteric artery or inferior mesenteric artery so the findings favor inflammation from diverticulitis or inflammatory bowel disease.
[2023-10-28 14:19] VITALS: BP 115/70; PULSE 82; TEMP 97.9
[2023-10-28 14:23] LABS: Appearance,Urine Clear (Clear); Bacteria,Urine Rare /hpf; Bilirubin,Urine Negative (Negative); Blood,Urine Negative (Negative); Color,Urine Colorless; Glucose,Urine (UA) Negative (Negative); Ketones,Urine Negative (Negative); Leukocyte Esterase,Urine Large (Negative); Mucus,Urine Rare /hpf; Nitrite,Urine Negative (Negative); Protein,Urine Negative (Negative); RBC,Urine 3 /hpf (0-5); Squamous Epithelial Cell,Urine 4 /hpf (0-4); Urobilinogen,Urine <2.0 mg/dL (<2.0); WBC,Urine 5 /hpf (0-5)
[2023-10-28 14:24] LABS: Specific Gravity,Urine >1.050 (1.001-1.035)
== END 2023-10-28 14:16 | disposition home or self-care (01) ==
LOC: EC 09:51
DX: K57.32 Diverticulitis of large intestine without perforation or abscess without bleeding (principal)
CPT/HCPCS: 36415; 80053; 82150; 83605; 83690; 85025; 82272; 81001; 87636; 74177; 99284; 96374; 96361; J2405; Q9967

== ENCOUNTER 2023-10-29 08:39 | Emergency (ER) | payer MEDICARE ==
[2023-10-29] MEDS: SODIUM CHLORIDE 0.9% 1,000 ML IV STA (09:16)
--- NOTE | 2023-10-29 09:23 | ED ---
General Adult HPI - General Chief complaint: Weakness Stated complaint: reaction to medication Time Seen by Provider: 10/29/23 08:50 Source: patient, family, RN notes reviewed Mode of arrival: ambulatory Limitations: no limitations - History of Present Illness Initial comments: This is an 83-year-old female who presents to the emergency department for we akness and bodyaches. Patient was evaluated here yesterday for abdominal pain and diarrhea. She was diagnosed with suspected diverticulitis and started on Augmentin. She also started taking probiotics and Imodium for the diarrhea. Feels like the diarrhea and abdominal pain have improved, however when she woke up this morning she had body aches. She is concerned that this may be a reaction to the Augmentin. She has however taken Amoxicillin in the past without any problems. States that she may have had a fever last night, but did not measure any this morning. - Related Data Home Medications Medication Instructions Recorded Confirmed ALPRAZolam [Xanax] 0.125 - 0.25 mg PO BID PRN 07/05/16 10/28/23 Multivit-Min/Iron/Folic/Lutein 1 tab PO DAILY 08/08/20 10/28/23 [Centrum Silver Women Tablet] Pantoprazole [Protonix] 40 mg PO DAILY PRN 08/08/20 10/28/23 Vit C/E/Zn/Coppr/Lutein/Zeaxan 1 tab PO BID 08/08/20 10/28/23 [Preservision Areds 2 Softgel] Bifidobacterium Infantis [Align] 4 mg PO BID 10/28/23 10/28/23 Calcium Carbonate [Calcium] 600 mg PO Q2D 10/28/23 10/28/23 Cholecalciferol [Vitamin D3 (25 25 mcg PO DAILY 10/28/23 10/28/23 Mcg = 1000 Iu)] Collagen Powder 2 scoop PO DAILY 10/28/23 10/28/23 Loperamide [Imodium] 2 mg PO BID 10/28/23 10/28/23 Loperamide [Imodium] 2 mg PO BID PRN 10/28/23 10/28/23 Buckley-3/Dha/Epa/Fish Oil [Fish Oil 1 cap PO Q2D 10/28/23 10/28/23 1,000 mg Softgel] Rosuvastatin Calcium 5 mg PO W/LUNCH 10/28/23 10/28/23 metFORMIN HCL 500 mg PO DIRECTED 10/28/23 10/28/23 Previous Rx's Medication Instructions Recorded Amoxic-Pot Clav 875-125Mg 1 tab PO TID 5 Days #15 tab 10/28/23 [Augmentin 875-125] Ciprofloxacin HCl [Cipro] 500 mg PO Q12HR 10 Days #20 tab 10/29/23 Ketorolac [Toradol] 10 mg PO Q8HR PRN #10 tab 10/29/23 metroNIDAZOLE [Flagyl] 500 mg PO TID 10 Days #30 tab 10/29/23 Allergies Allergy/AdvReac Type Severity Reaction Status Date / Time No Known Allergies Allergy Verified 10/29/23 08:49 Review of Systems ROS Statement: Those systems with pertinent positive or pertinent negative responses have been documented in the HPI. ROS Other: All systems not noted in ROS Statement are negative. Past Medical History Past Medical History: Diabetes Mellitus, Hyperlipidemia, Osteoarthritis (OA) Additional Past Medical History / Comment(s): . 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 HISTORY IN FAMILY: CELIAC. History of Any Multi-Drug Resistant Organisms: None Reported Past Surgical History: Hysterectomy Additional Past Surgical History / Comment(s): Spleenectomy. hiatal hernia Past Anesthesia/Blood Transfusion Reactions: No Reported Reaction Past Psychological History: Anxiety Smoking Status: Never smoker Past Alcohol Use History: None Reported Past Drug Use History: None Reported General Exam Limitations: no limitations General appearance: alert, in no apparent distress Head exam: Present: atraumatic, normocephalic, normal inspection Respiratory exam: Present: normal lung sounds bilaterally. Absent: respiratory distress, wheezes, rales, rhonchi, stridor Cardiovascular Exam: Present: normal rhythm, tachycardia, normal heart sounds. Absent: systolic murmur, diastolic murmur, rubs, gallop, clicks GI/Abdominal exam: Present: soft, normal bowel sounds. Absent: distended, tenderness, guarding, rebound, rigid Neurological exam: Present: alert, oriented X3, CN II-XII intact Psychiatric exam: Present: normal affect, normal mood Skin exam: Present: warm, dry, intact, normal color. Absent: rash Course Vital Signs 10/29/23 10/29/23 10/29/23 08:44 08:59 10:49 Temperature 98.7 F Pulse Rate 119 H 115 H 65 Respiratory 18 20 16 Rate Blood Pressure 95/63 125/76 130/68 O2 Sat by Pulse 95 95 98 Oximetry 10/29/23 13:35 Temperature Pulse Rate 75 Respiratory 16 Rate Blood Pressure 135/68 O2 Sat by Pulse 98 Oximetry Medical Decision Making - Medical Decision Making This is an 83 year old female who presents to the emergency department for body aches. Was pt. sent in by a medical professional or institution? @ -No Did you speak to anyone other than the patient for history? @ -No Did you review nursing and triage notes? @ -Yes, and I agree, it is accurate with regards to the patient's symptoms. Were old charts reviewed? @ -CT scan of the abdomen and pelvis from 10/28/23 demonstrating diffuse thickening in the wall of the colon, greatest in the sigmoid colon. Findings were said to be nonspecific and could represent ischemic bowel, diverticulitis, or inflammatory bowel disease, however ischemic bowel was felt to be less likely. Differential Diagnosis? @ -Differential Body Aches: Viral illness, injury, dehydration, electrolyte abnormality, this is not meant to be an all-inclusive list. EKG interpreted by me (3pts min.)? @ -Not obtained X-rays interpreted by me (1pt min.)? @ -Not obtained CT interpreted by me (1pt min.)? @ -Not obtained U/S interpreted by me (1pt. min.)? @ -Not obtained What testing was considered but not performed? (CT, X-rays, U/S, labs)? Why? @ -None What meds were considered but not given? Why? @ -None Did you discuss the management of the patient with other professionals? @ -No Did you reconcile home meds? @ -No Was smoking cessation discussed for >3mins.? @ -No Was critical care preformed (if so, how long)? @ -No Were there social determinants of health that impacted care today? How? (Homelessness, low income, unemployed, alcoholism, drug addiction, transportation, low edu. Level, literacy, decrease access to med. care, skilled nursing, rehab)? @ -No Was there de-escalation of care discussed even if they declined? (Discuss DNR or withdrawal of care, Hospice)? @ -No What co-morbidities impacted this encounter? (DM, HTN, Smoking, COPD, CAD, Cancer, CVA, Hep., AIDS, mental health diagnosis, sleep apnea, morbid obesity)? @ -DM, osteoarthritis, asplenia Was patient admitted / discharged? @ -Discharged. Lab work demonstrates mild leukocytosis and signs of mild dehydration. Urinalysis potentially suggestive of infection with leukocyte esterase and elevated white blood cells. Urine sent for culture. COVID, in fluenza, and RSV testing were negative. Patient given IV fluids and Toradol with significant relief in symptoms. Discussed with the patient that this may have been a medication reaction, and given that abdominal pain and diarrhea have improved significantly, it is less likely to be related to worsening diverticulitis. However, given the extent of the inflammation on the CT scan from yesterday as well as her age and comorbidities, I did offer admission for further management. Patient states that since she feels better she is comfortable for discharge home. Will switch her from Augmentin to Cipro and Flagyl for management of both possible UTI and diverticulitis. Dosing instructions reviewed. Strict return parameters discussed and she will otherwise follow-up with her primary care provider. Undiagnosed new problem with uncertain prognosis? @ -None Drug Therapy requiring intensive monitoring for toxicity (Heparin, Nitro, Insulin, Cardizem)? @ -None Were any procedures done? @ -None Diagnosis/symptom? @ -Diverticulitis, UTI, body aches Acute, or Chronic, or Acute on Chronic? @ -Acute Uncomplicated (without systemic symptoms) or Complicated (systemic symptoms)? @ -Uncomplicated Side effects of treatment? @ -None Exacerbation, Progression, or Severe Exacerbation] @ -Not applicable Poses a threat to life or bodily function? @ -No Return precautions reviewed in depth, the patient is instructed to return to the emergency department with any new, worsening, or concerning symptoms. Patient verbalized understanding. This case was discussed in detail with the attending ED physician, Dr. Kulkarni. Presentation, findings, and treatment plan discussed in detail as well. - Lab Data Result diagrams: 10/29/23 09:06 10/29/23 09:06 Lab Results 10/29/23 10/29/23 10/29/23 Range/Units 09:06 09:06 09:06 WBC 11.1 H (3.8-10.6) k/uL RBC 4.22 (3.80-5.40) m/uL Hgb 12.4 (11.4-16.0) gm/dL Hct 38.5 (34.0-46.0) % MCV 91.2 (80.0-100.0) fL MCH 29.4 (25.0-35.0) pg MCHC 32.2 (31.0-37.0) g/dL RDW 13.0 (11.5-15.5) % Plt Count 412 (150-450) k/uL MPV 8.1 Neutrophils % 68 % Lymphocytes % 16 % Monocytes % 12 % Eosinophils % 2 % Basophils % 0 % Neutrophils # 7.6 (1.3-7.7) k/uL Lymphocytes # 1.8 (1.0-4.8) k/uL Monocytes # 1.3 H (0-1.0) k/uL Eosinophils # 0.3 (0-0.7) k/uL Basophils # 0.0 (0-0.2) k/uL Sodium 138 (137-145) mmol/L Potassium 4.2 (3.5-5.1) mmol/L Chloride 106 (98-107) mmol/L Carbon Dioxide 23 (22-30) mmol/L Anion Gap 9 mmol/L BUN 18 H (7-17) mg/dL Creatinine 0.87 (0.52-1.04) mg/dL Est GFR (CKD-EPI)AfAm 70 (>60 ml/min/1.73 sqM) Est GFR (CKD-EPI)NonAf 61 (>60 ml/min/1.73 sqM) Glucose 149 H (74-99) mg/dL Plasma Lactic Acid Yuriy 1.1 (0.7-2.0) mmol/L Calcium 9.2 (8.4-10.2) mg/dL Total Bilirubin 0.6 (0.2-1.3) mg/dL AST 20 (14-36) U/L ALT 16 (4-34) U/L Alkaline Phosphatase 68 (38-126) U/L Total Protein 6.7 (6.3-8.2) g/dL Albumin 3.8 (3.5-5.0) g/dL Lipase 39 (23-300) U/L Urine Color Urine Appearance (Clear) Urine pH (5.0-8.0) Ur Specific [place] (1.001-1.035) Urine Protein (Negative) Urine Glucose (UA) (Negative) Urine Ketones (Negative) Urine Blood (Negative) Urine Nitrite (Negative) Urine Bilirubin (Negative) Urine Urobilinogen (<2.0) mg/dL Ur Leukocyte Esterase (Negative) Urine WBC (0-5) /hpf Ur Squamous Epith Cells (0-4) /hpf Urine Bacteria (None) /hpf Urine Mucus (None) /hpf Stool Lactoferrin (Negative) Influenza Type A (PCR) (Not Detectd) Influenza Type B (PCR) (Not Detectd) RSV (PCR) (Not Detectd) SARS-CoV-2 (PCR) (Not Detectd) 10/29/23 10/29/23 10/29/23 Range/Units 09:30 11:26 11:26 WBC (3.8-10.6) k/uL RBC (3.80-5.40) m/uL Hgb (11.4-16.0) gm/dL Hct (34.0-46.0) % MCV (80.0-100.0) fL MCH (25.0-35.0) pg MCHC (31.0-37.0) g/dL RDW (11.5-15.5) % Plt Count (150-450) k/uL MPV Neutrophils % % Lymphocytes % % Monocytes % % Eosinophils % % Basophils % % Neutrophils # (1.3-7.7) k/uL Lymphocytes # (1.0-4.8) k/uL Monocytes # (0-1.0) k/uL Eosinophils # (0-0.7) k/uL Basophils # (0-0.2) k/uL Sodium (137-145) mmol/L Potassium (3.5-5.1) mmol/L Chloride (98-107) mmol/L Carbon Dioxide (22-30) mmol/L Anion Gap mmol/L BUN (7-17) mg/dL Creatinine (0.52-1.04) mg/dL Est GFR (CKD-EPI)AfAm (>60 ml/min/1.73 sqM) Est GFR (CKD-EPI)NonAf (>60 ml/min/1.73 sqM) Glucose (74-99) mg/dL Plasma Lactic Acid Yuriy (0.7-2.0) mmol/L Calcium (8.4-10.2) mg/dL Total Bilirubin (0.2-1.3) mg/dL AST (14-36) U/L ALT (4-34) U/L Alkaline Phosphatase (38-126) U/L Total Protein (6.3-8.2) g/dL Albumin (3.5-5.0) g/dL Lipase (23-300) U/L Urine Color Yellow Urine Appearance Cloudy H (Clear) Urine pH 5.5 (5.0-8.0) Ur Specific [place] 1.036 H (1.001-1.035) Urine Protein 1+ H (Negative) Urine Glucose (UA) Negative (Negative) Urine Ketones Trace H (Negative) Urine Blood Negative (Negative) Urine Nitrite Negative (Negative) Urine Bilirubin Negative (Negative) Urine Urobilinogen 3.0 (<2.0) mg/dL Ur Leukocyte Esterase Large H (Negative) Urine WBC 18 H (0-5) /hpf Ur Squamous Epith Cells 3 (0-4) /hpf Urine Bacteria Rare H (None) /hpf Urine Mucus Occasional H (None) /hpf Stool Lactoferrin Positive A (Negative) Influenza Type A (PCR) Not Detected (Not Detectd) Influenza Type B (PCR) Not Detected (Not Detectd) RSV (PCR) Not Detected (Not Detectd) SARS-CoV-2 (PCR) Not Detected (Not Detectd) Disposition Clinical Impression: Diverticulitis, Body aches Disposition: HOME SELF-CARE Instructions (If sedation given, give patient instructions): Diverticulitis (ED), Diverticulitis Diet (ED) Additional Instructions: Return to the emergency department with any new, worsening, or concerning symptoms. Take the Toradol with Tylenol as needed for pain relief. If you choose to take the Toradol, do not take any other anti-inflammatories such as ibuprofen, take one or the other. Stop taking the Augmentin and begin taking the new antibiotics as prescribed for 10 days. You can continue to take the Imodium for the diarrhea. Take 1 capsule after each loose stool, not to exceed 8 mg or 4 capsules daily. Follow up with your primary care provider in 1-2 days. Prescriptions: Ciprofloxacin HCl [Cipro] 500 mg PO Q12HR 10 Days #20 tab metroNIDAZOLE [Flagyl] 500 mg PO TID 10 Days #30 tab Ketorolac [Toradol] 10 mg PO Q8HR PRN #10 tab PRN Reason: Pain Is patient prescribed a controlled substance at d/c from ED?: No Referrals: Eulogio Mathew MD [Primary Care Provider] - 1-2 days Time of Disposition: 12:44
[2023-10-29 09:25] VITALS: TEMP 98.7
[2023-10-29 09:28] LABS: Basophils % (A) 0 %; Eosinophils # (A) 0.3 k/uL (0-0.7); Eosinophils % (A) 2 %; HCT 38.5 % (34.0-46.0); HGB 12.4 gm/dL (11.4-16.0); Lymphocytes # (A) 1.8 k/uL (1.0-4.8); Lymphocytes % (A) 16 %; MCH 29.4 pg (25.0-35.0); MCHC 32.2 g/dL (31.0-37.0); MCV 91.2 fL (80.0-100.0); Mean Platelet Volume 8.1; Monocytes # (A) 1.3 k/uL (0-1.0); Monocytes % (A) 12 %; Neutrophils # (A) 7.6 k/uL (1.3-7.7); Neutrophils % (A) 68 %; Platelet Count 412 k/uL (150-450); RBC 4.22 m/uL (3.80-5.40); WBC 11.1 k/uL (3.8-10.6)
[2023-10-29] MEDS: KETOROLAC 15 MG/ML 1 ML VIAL IVP STA ×2 (09:34→13:22)
[2023-10-29 09:41] LABS: ALT 16 U/L (4-34); AST 20 U/L (14-36); African American GFR (CKD) 70 (>60 ml/min/1.73 sqM); Albumin 3.8 g/dL (3.5-5.0); Alkaline Phosphatase 68 U/L (38-126); Anion Gap 9 mmol/L; Blood Urea Nitrogen 18 mg/dL (7-17); Calcium 9.2 mg/dL (8.4-10.2); Carbon Dioxide 23 mmol/L (22-30); Chloride 106 mmol/L (98-107); Glucose 149 mg/dL (74-99); Lipase 39 U/L (23-300); Non-African American GFR(CKD) 61 (>60 ml/min/1.73 sqM); Potassium 4.2 mmol/L (3.5-5.1); Sodium 138 mmol/L (137-145); Total Bilirubin 0.6 mg/dL (0.2-1.3); Total Protein 6.7 g/dL (6.3-8.2)
[2023-10-29 11:38] LABS: Appearance,Urine Cloudy (Clear); Bacteria,Urine Rare /hpf; Bilirubin,Urine Negative (Negative); Blood,Urine Negative (Negative); Color,Urine Yellow; Glucose,Urine (UA) Negative (Negative); Ketones,Urine Trace (Negative); Leukocyte Esterase,Urine Large (Negative); Mucus,Urine Occasional /hpf; Nitrite,Urine Negative (Negative); PH, Urine 5.5 (5.0-8.0); Protein,Urine 1+ (Negative); Specific Gravity,Urine 1.036 (1.001-1.035); Squamous Epithelial Cell,Urine 3 /hpf (0-4); WBC,Urine 18 /hpf (0-5)
[2023-10-29 11:44] VITALS: RESP 16
[2023-10-29] MEDS: ACET/COD 300 MG/30 MG STARTER PACK 6 TAB BTL PO STA (13:34)
[2023-10-29 13:59] VITALS: BP 135/68; PULSE 75
== END 2023-10-29 13:36 | disposition home or self-care (01) ==
LOC: EC 08:39
DX: K57.92 Diverticulitis of intestine, part unspecified, without perforation or abscess without bleeding (principal); R52 Pain, unspecified
CPT/HCPCS: 36415; 80053; 83605; 83690; 85025; 81001; 87086; 87045; 83630; 87046; 87636; 99285; 96374; 96376; 96361 ×4; J1885

== ENCOUNTER 2024-02-01 08:37 | Emergency (ER) | payer MEDICARE ==
[2024-02-01] MEDS: SODIUM CHLORIDE 0.9% 500 ML 500 ML IV STA (09:03)
[2024-02-01] MEDS: FAMOTIDINE 20 MG/2 ML VIAL IV STA (09:06)
[2024-02-01] MEDS: METOCLOPRAMIDE 5 MG/ML 2 ML VIAL IVP STA (09:06)
[2024-02-01] MEDS: MAG HYDROX/AL HYDROX/SIMETH 30 ML, HYOSCYAMINE ELIXIR 10 ML PO STA (09:07)
[2024-02-01 09:27] LABS: Basophils # (A) 0.1 k/uL (0-0.2); Basophils % (A) 1 %; Eosinophils # (A) 0.2 k/uL (0-0.7); Eosinophils % (A) 2 %; HCT 46.8 % (34.0-46.0); HGB 14.1 gm/dL (11.4-16.0); Lymphocytes # (A) 3.6 k/uL (1.0-4.8); Lymphocytes % (A) 38 %; MCH 28.6 pg (25.0-35.0); MCHC 30.2 g/dL (31.0-37.0); MCV 94.5 fL (80.0-100.0); Mean Platelet Volume 9.2; Monocytes # (A) 0.8 k/uL (0-1.0); Monocytes % (A) 8 %; Neutrophils # (A) 4.7 k/uL (1.3-7.7); Neutrophils % (A) 50 %; Platelet Count 400 k/uL (150-450); RBC 4.95 m/uL (3.80-5.40); RDW 12.9 % (11.5-15.5); WBC 9.5 k/uL (3.8-10.6)
[2024-02-01 09:38] VITALS: RESP 18
[2024-02-01 09:43] LABS: ALT 48 U/L (4-34); AST 37 U/L (14-36); African American GFR (CKD) >90 (>60 ml/min/1.73 sqM); Albumin 4.4 g/dL (3.5-5.0); Alkaline Phosphatase 68 U/L (38-126); Anion Gap 9 mmol/L; Blood Urea Nitrogen 18 mg/dL (7-17); Carbon Dioxide 27 mmol/L (22-30); Chloride 103 mmol/L (98-107); Glucose 193 mg/dL (74-99); Lipase 164 U/L (23-300); Non-African American GFR(CKD) 80 (>60 ml/min/1.73 sqM); Potassium 4.2 mmol/L (3.5-5.1); Sodium 139 mmol/L (137-145); Total Bilirubin 0.9 mg/dL (0.2-1.3); Total Protein 7.3 g/dL (6.3-8.2)
--- NOTE | 2024-02-01 09:48 | ED ---
Abdominal Pain HPI - General Chief Complaint: Abdominal Pain Stated Complaint: abd pain Time Seen by Provider: 02/01/24 08:44 Source: patient, RN notes reviewed Mode of arrival: ambulatory Limitations: no limitations - History of Present Illness Initial Comments: 83-year-old female presents emergency department chief complaint of epigastric pain. Patient states has been waking up in the morning states that she has pain throughout the night and epigastric region sometimes radiates around to her back. Patient does admit that she has a hiatal hernia and states that she deals with chronic reflux she is on Protonix currently. Patient states symptoms have been worsening. Denies any chest pain no fevers or chills she states she has some difficulty urinating as she has a cystocele she will use. Patient denies any fevers chills denies any change in bowel habits. She states that she is very gassy, bloated feeling - Related Data Home Medications Medication Instructions Recorded Confirmed ALPRAZolam [Xanax] 0.125 mg PO BID 07/05/16 02/01/24 Multivit-Min/Iron/Folic/Lutein 1 tab PO DAILY 08/08/20 02/01/24 [Centrum Silver Women Tablet] Pantoprazole [Protonix] 40 mg PO HS 08/08/20 02/01/24 Vit C/E/Zn/Coppr/Lutein/Zeaxan 1 tab PO BID 08/08/20 02/01/24 [Preservision Areds 2 Softgel] Bifidobacterium Infantis [Align] 4 mg PO BID 10/28/23 02/01/24 Cholecalciferol [Vitamin D3 (25 25 mcg PO DAILY 10/28/23 02/01/24 Mcg = 1000 Iu)] Collagen Powder 2 scoop PO DAILY 10/28/23 02/01/24 Rosuvastatin Calcium 5 mg PO W/SUPPER 10/28/23 02/01/24 Previous Rx's Medication Instructions Recorded Sucralfate [Carafate] 1 gm PO BID #30 tablet 02/01/24 Allergies Allergy/AdvReac Type Severity Reaction Status Date / Time No Known Allergies Allergy Verified 02/01/24 10:47 Review of Systems ROS Statement: Those systems with pertinent positive or pertinent negative responses have been documented in the HPI. ROS Other: All systems not noted in ROS Statement are negative. Past Medical History Past Medical History: Diabetes Mellitus, Hyperlipidemia, Osteoarthritis (OA) Additional Past Medical History / Comment(s): . 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 HISTORY IN FAMILY: CELIAC. History of Any Multi-Drug Resistant Organisms: None Reported Past Surgical History: Hysterectomy Additional Past Surgical History / Comment(s): Spleenectomy. hiatal hernia Past Anesthesia/Blood Transfusion Reactions: No Reported Reaction Past Psychological History: Anxiety Smoking Status: Never smoker Past Alcohol Use History: None Reported Past Drug Use History: None Reported General Exam Limitations: no limitations General appearance: alert, in no apparent distress Head exam: Present: atraumatic, normocephalic, normal inspection Eye exam: Present: normal appearance, PERRL, EOMI. Absent: scleral icterus, conjunctival injection, periorbital swelling Neck exam: Present: normal inspection. Absent: tenderness, meningismus, lymphadenopathy Respiratory exam: Present: normal lung sounds bilaterally. Absent: respiratory distress, wheezes, rales, rhonchi, stridor Cardiovascular Exam: Present: regular rate, normal rhythm, normal heart sounds. Absent: systolic murmur, diastolic murmur, rubs, gallop, clicks GI/Abdominal exam: Present: soft, tenderness (Mild epigastric), normal bowel sounds. Absent: distended, guarding, rebound, rigid Back exam: Absent: CVA tenderness (R), CVA tenderness (L) Course Vital Signs 02/01/24 02/01/24 02/01/24 08:40 09:38 11:30 Temperature 97.7 F 97.8 F Pulse Rate 83 72 69 Respiratory 16 18 18 Rate Blood Pressure 191/85 135/78 156/78 O2 Sat by Pulse 97 99 99 Oximetry Medical Decision Making - Medical Decision Making Was pt. sent in by a medical professional or institution (, PA, GERIATRIC PSYCHIATRIST, urgent care, hospital, or fci...) When possible be specific @ -No Did you speak to anyone other than the patient for history (EMS, parent, family, police, friend...)? What history was obtained from this source @ -No Did you review nursing and triage notes (agree or disagree)? Why? @ -I reviewed and agree with nursing and triage notes Were old charts reviewed (outside hosp., previous admission, EMS record, old EKG, old radiological studies, urgent care reports/EKG's, fci records)? Report findings @ -No old charts were reviewed Differential Diagnosis (chest pain, altered mental status, abdominal pain women, abdominal pain men, vaginal bleeding, weakness, fever, dyspnea, syncope, hea dache, dizziness, GI bleed, back pain, seizure, CVA, palpatations, mental health, musculoskeletal)? @ -Differential Abdominal Pain Women: Appendicitis, Cholecystitis, diverticulosis, ischemic bowel, pancreatitis, hepatitis, UTI, gastroenteritis, AAA, incarcerated hernia, bowel obstruction, constipation, inflammatory bowel, hepatitis, peptic ulcer disease, splenic infarction, perforated viscus, vulvitis, ovarian torsion, PID, kidney stone, placenta abruption, this is not meant to be an all-inclusive list EKG interpreted by me (3pts min.). @ -As above X-rays interpreted by me (1pt min.). @ -None done CT interpreted by me (1pt min.). @ -CT of the abdomen pelvis showing inflammation of the gastric fold consistent with gastritis, diverticulosis, hiatal hernia U/S interpreted by me (1pt. min.). @ -None done What testing was considered but not performed or refused? (CT, X-rays, U/S, labs)? Why? @ -None What meds were considered but not given or refused? Why? @ -None Did you discuss the management of the patient with other professionals (professionals i.e. , PA, GERIATRIC PSYCHIATRIST, lab, RT, psych nurse, geriatric social work professor, street roller engineer, teacher, agricultural technical officer, manager case)? Give summary @ -No Was smoking cessation discussed for >3mins.? @ -No Was critical care preformed (if so, how long)? @ -No Were there social determinants of health that impacted care today? How? (Homelessness, low income, unemployed, alcoholism, drug addiction, transportation, low edu. Level, literacy, decrease access to med. care, intermediate, rehab)? @ -No Was there de-escalation of care discussed even if they declined (Discuss DNR or withdrawal of care, Hospice)? DNR status @ -No What co-morbidities impacted this encounter? (DM, HTN, Smoking, COPD, CAD, Cancer, CVA, ARF, Chemo, Hep., AIDS, mental health diagnosis, sleep apnea, morb id obesity)? @ -GERD hiatal hernia Was patient admitted / discharged? Hospital course, mention meds given and route, prescriptions, significant lab abnormalities, going to OR and other pertinent info. @Discharge patient felt great improved after antiemetics, antiacids. Patient does have inflammatory changes noted on CT patient will be follow-up with GI for EGD she states she is already scheduled for colonoscopy. Patient was given strict return parameters and dietary changes Undiagnosed new problem with uncertain prognosis? @ -No Drug Therapy requiring intensive monitoring for toxicity (Heparin, Nitro, Insulin, Cardizem)? @ -No Were any procedures done? @ -No Diagnosis/symptom? @ -Gastritis Acute, or Chronic, or Acute on Chronic? @ -Acute Uncomplicated (without systemic symptoms) or Complicated (systemic symptoms)? @ -Uncomplicated Side effects of treatment? @ -No Exacerbation, Progression, or Severe Exacerbation? @ -No Poses a threat to life or bodily function? How? (Chest pain, USA, PA, pneumonia, PE, COPD, DKA, ARF, appy, cholecystitis, CVA, Diverticulitis, Homicidal, Suicidal, threat to staff... and all critical care pts) @ -No - Lab Data Result diagrams: 02/01/24 08:58 02/01/24 08:58 Lab Results 02/01/24 02/01/24 02/01/24 Range/Units 08:58 08:58 08:58 WBC 9.5 (3.8-10.6) k/uL RBC 4.95 (3.80-5.40) m/uL Hgb 14.1 (11.4-16.0) gm/dL Hct 46.8 H (34.0-46.0) % MCV 94.5 (80.0-100.0) fL MCH 28.6 (25.0-35.0) pg MCHC 30.2 L (31.0-37.0) g/dL RDW 12.9 (11.5-15.5) % Plt Count 400 (150-450) k/uL MPV 9.2 Neutrophils % 50 % Lymphocytes % 38 % Monocytes % 8 % Eosinophils % 2 % Basophils % 1 % Neutrophils # 4.7 (1.3-7.7) k/uL Lymphocytes # 3.6 (1.0-4.8) k/uL Monocytes # 0.8 (0-1.0) k/uL Eosinophils # 0.2 (0-0.7) k/uL Basophils # 0.1 (0-0.2) k/uL Sodium 139 (137-145) mmol/L Potassium 4.2 (3.5-5.1) mmol/L Chloride 103 (98-107) mmol/L Carbon Dioxide 27 (22-30) mmol/L Anion Gap 9 mmol/L BUN 18 H (7-17) mg/dL Creatinine 0.68 (0.52-1.04) mg/dL Est GFR (CKD-EPI)AfAm >90 (>60 ml/min/1.73 sqM) Est GFR (CKD-EPI)NonAf 80 (>60 ml/min/1.73 sqM) Glucose 193 H (74-99) mg/dL Plasma Lactic Acid Yuriy 1.1 (0.7-2.0) mmol/L Calcium 10.0 (8.4-10.2) mg/dL Total Bilirubin 0.9 (0.2-1.3) mg/dL AST 37 H (14-36) U/L ALT 48 H (4-34) U/L Alkaline Phosphatase 68 (38-126) U/L Troponin I (0.000-0.034) ng/mL Total Protein 7.3 (6.3-8.2) g/dL Albumin 4.4 (3.5-5.0) g/dL Lipase 164 (23-300) U/L // Range/Units 08:58 WBC (3.8-10.6) k/uL RBC (3.80-5.40) m/uL Hgb (11.4-16.0) gm/dL Hct (34.0-46.0) % MCV (80.0-100.0) fL MCH (25.0-35.0) pg MCHC (31.0-37.0) g/dL RDW (11.5-15.5) % Plt Count (150-450) k/uL MPV Neutrophils % % Lymphocytes % % Monocytes % % Eosinophils % % Basophils % % Neutrophils # (1.3-7.7) k/uL Lymphocytes # (1.0-4.8) k/uL Monocytes # (0-1.0) k/uL Eosinophils # (0-0.7) k/uL Basophils # (0-0.2) k/uL Sodium (137-145) mmol/L Potassium (3.5-5.1) mmol/L Chloride (98-107) mmol/L Carbon Dioxide (22-30) mmol/L Anion Gap mmol/L BUN (7-17) mg/dL Creatinine (0.52-1.04) mg/dL Est GFR (CKD-EPI)AfAm (>60 ml/min/1.73 sqM) Est GFR (CKD-EPI)NonAf (>60 ml/min/1.73 sqM) Glucose (74-99) mg/dL Plasma Lactic Acid Yuriy (0.7-2.0) mmol/L Calcium (8.4-10.2) mg/dL Total Bilirubin (0.2-1.3) mg/dL AST (14-36) U/L ALT (4-34) U/L Alkaline Phosphatase (38-126) U/L Troponin I <0.012 (0.000-0.034) ng/mL Total Protein (6.3-8.2) g/dL Albumin (3.5-5.0) g/dL Lipase (23-300) U/L - EKG Data -: EKG Interpreted by Me EKG Comments: EKG performed at 8: 48 sinus rhythm rate of 71 PA 156 QRS 98 QT/QTc 382/404 Disposition Clinical Impression: Gastritis, Abdominal pain Disposition: HOME SELF-CARE Condition: Stable Instructions (If sedation given, give patient instructions): Gastritis (ED), Diet for Stomach Ulcers and Gastritis (ED) Additional Instructions: Please return to the Emergency Department if symptoms worsen or any other concerns. Prescriptions: Sucralfate [Carafate] 1 gm PO BID #30 tablet Is patient prescribed a controlled substance at d/c from ED?: No Referrals: Eulogio Mathew MD [Primary Care Provider] - 1-2 days Monica Flores MD [STAFF PHYSICIAN] - 1-2 days Time of Disposition: 11:19
--- NOTE | 2024-02-01 11:01 | CT ---
EXAMINATION TYPE: CT abdomen pelvis w con DATE OF EXAM: 02/01/2024 COMPARISON: 10/28/2023 HISTORY: 83-year-old female epigastric pain TECHNIQUE: Contiguous axial scanning of the abdomen and pelvis following administration of 100 ml Iso liyah 300 IV contrast. Delayed images through the kidneys and coronal/sagittal reconstructions perform ed. CT DLP: 524.7 mGycm Automated exposure control for dose reduction was used. FINDINGS: Heart normal size without pericardial effusion. Mild emphysematous change in the lower lung s. Diffuse gastric fold thickening, especially just below the GE junction, axial image 9. No focal liver lesion or biliary ductal dilatation. Portal venous system is patent. Gallbladder, right adrenal gland, kidneys, and pancreas within normal limits. Mild thickening of the left adrenal gland without discrete nodularity is unchanged. Spleen appears absent. No dilated small bowel, free fluid, or free air. No mesenteric or retroperitoneal lymphadenopathy. Liquid stool within the right side of the colon. There is pancolonic mucosal uremia. Mild to moderate circumferential wall thickening along the transverse colon and descending colon. More moderate to se angela along the sigmoid colon. Wall thickening extends to the rectum. Sigmoid diverticulosis. No focal inflammatory changes centered over diverticular change. Bladder partially distended. Uterus surgically absent. Numerous pelvic phleboliths. Suspect visualiza tion of both ovaries. No abnormal fluid collection in the pelvis or pelvic lymphadenopathy. Bones: Moderate degenerative change of the hips. Advanced spondylotic changes throughout the lumbar s pine along vascular disease. Degenerative grade 1 spondylolisthesis L2-L3 and L4-L5. Possible moderat e to severe spinal canal stenosis at L4-L5. IMPRESSION: 1. DIFFUSE GASTRIC FOLD THICKENING PARTICULARLY JUST BELOW THE GE JUNCTION. CONSIDER DIFFUSE GASTRITI S. DIRECT VISUALIZATION IF CLINICALLY INDICATED. 2. ADDITIONAL FINDINGS OF A NONSPECIFIC PANCOLITIS WITH MODERATE WALL THICKENING ALONG THE DESCENDING AND SIGMOID COLON. CONSIDER INFECTIOUS OR INFLAMMATORY ETIOLOGIES. 3. INCIDENTAL: COPD WITH MILD EMPHYSEMA, ABSENT SPLEEN, AND SIGMOID DIVERTICULOSIS.
[2024-02-01] MEDS: PANTOPRAZOLE 40 MG/10 ML VIAL IVP STA (11:25)
[2024-02-01 11:31] VITALS: BP 156/78; PULSE 69; TEMP 97.8
== END 2024-02-01 11:31 | disposition home or self-care (01) ==
LOC: EC 08:37
DX: K52.9 Noninfective gastroenteritis and colitis, unspecified (principal)
CPT/HCPCS: 36415; 93005; 80053; 83605; 83690; 84484; 85025; 74177; 99284; 96374; 96375 ×2; 96361; J2765; J3490; C9113; Q9967

== ENCOUNTER → 2024-02-18 | Outpatient (CLI) | payer MEDICARE ==
--- NOTE | 2024-02-18 15:01 | XR ---
EXAMINATION TYPE: XR KUB DATE OF EXAM: 02/18/2024 2:52 PM CLINICAL INDICATION:Female, 83 years old with history of R10.9 UNSPECIFIED ABDOMINAL PAIN; [facility] COMPARISON: 02/01/2024. TECHNIQUE: One radiographic view of the abdomen was obtained. FINDINGS: Stool seen throughout the colon most pronounced in the right colon and rectum.. The bowel g as pattern is nonspecific without dilated loops of small or large bowel. . Fecal material and gas are demonstrated throughout the colon and rectum. There is no evidence for organomegaly or pneumoperitoneum. The osseous structures are intact. No ab normal calcifications are present. IMPRESSION: Moderate to large stool burden throughout the colon and rectum
== END | disposition home or self-care (01) ==
LOC: RADXRMAIN 14:12
PROVIDERS: ATTEND Internal Medicine Geriatric Medicine
DX: R10.9 Unspecified abdominal pain (principal)
CPT/HCPCS: 74018

== ENCOUNTER 2024-04-22 09:14 | Emergency (ER) | payer MEDICARE ==
[2024-04-22 09:27] VITALS: TEMP 97.6
--- NOTE | 2024-04-22 10:27 | ED ---
Abdominal Pain HPI - General Chief Complaint: Abdominal Pain Stated Complaint: Bloating, blockage Time Seen by Provider: 04/22/24 09:50 Source: patient, RN notes reviewed Mode of arrival: ambulatory Limitations: no limitations - History of Present Illness Initial Comments: This is an 84-year-old female who presents to the emergency department for abdominal pain. Reports problems with recurrent epigastric pain that typically occurs very late in the evening or overnight. She feels very bloated when this occurs. She has mild nausea but denies any vomiting. Reports frequent bowel movements as well and when she is able to go, states that it is only small amounts. This has been an ongoing problem for over a year, but states that she is getting very frustrated with the pain. MD Complaint: abdominal pain - Related Data Home Medications Medication Instructions Recorded Confirmed ALPRAZolam [Xanax] 0.125 mg PO BID 07/05/16 03/05/24 Multivit-Min/Iron/Folic/Lutein 1 tab PO DAILY 08/08/20 03/05/24 [Centrum Silver Women Tablet] Pantoprazole [Protonix] 40 mg PO HS 08/08/20 03/05/24 Vit C/E/Zn/Coppr/Lutein/Zeaxan 1 tab PO BID 08/08/20 03/05/24 [Preservision Areds 2 Softgel] Cholecalciferol [Vitamin D3 (25 25 mcg PO DAILY 10/28/23 03/05/24 Mcg = 1000 Iu)] Collagen Powder 2 scoop PO DAILY 10/28/23 03/05/24 Rosuvastatin Calcium 5 mg PO W/SUPPER 10/28/23 03/05/24 Bifidobacterium Infantis [Align] 4 mg PO DAILY 03/05/24 Multivit-Min/Iron/Folic/Lutein 1 each PO DAILY 03/05/24 [Centrum Silver Women Tablet] metFORMIN HCL 500 mg PO DAILY 03/05/24 Previous Rx's Medication Instructions Recorded Famotidine 40 mg PO DAILY #30 tablet 04/22/24 Lactulose 10 - 20 gm PO DAILY PRN #473 ml 04/22/24 Metoclopramide [Reglan] 5 mg PO Q6H PRN #30 tab 04/22/24 Allergies Allergy/AdvReac Type Severity Reaction Status Date / Time No Known Allergies Allergy Verified 04/22/24 09:27 Review of Systems ROS Statement: Those systems with pertinent positive or pertinent negative responses have been documented in the HPI. ROS Other: All systems not noted in ROS Statement are negative. Past Medical History Past Medical History: Diabetes Mellitus, Hyperlipidemia, Osteoarthritis (OA) Additional Past Medical History / Comment(s): . 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 HISTORY IN FAMILY: CELIAC. History of Any Multi-Drug Resistant Organisms: None Reported Past Surgical History: Hysterectomy Additional Past Surgical History / Comment(s): Spleenectomy. hiatal hernia Past Anesthesia/Blood Transfusion Reactions: No Reported Reaction Past Psychological History: Anxiety Smoking Status: Never smoker Past Alcohol Use History: None Reported Past Drug Use History: None Reported General Exam Limitations: no limitations General appearance: alert, in no apparent distress Head exam: Present: atraumatic, normocephalic, normal inspection Respiratory exam: Present: normal lung sounds bilaterally. Absent: respiratory distress, wheezes, rales, rhonchi, stridor Cardiovascular Exam: Present: regular rate, normal rhythm, normal heart sounds. Absent: systolic murmur, diastolic murmur, rubs, gallop, clicks GI/Abdominal exam: Present: soft, tenderness (Upper abdomen), normal bowel sounds. Absent: distended Neurological exam: Present: alert, oriented X3, CN II-XII intact Psychiatric exam: Present: normal affect, normal mood Skin exam: Present: warm, dry, intact, normal color. Absent: rash Course Vital Signs 04/22/24 04/22/24 09:24 13:26 Temperature 97.6 F Pulse Rate 76 65 Respiratory 20 18 Rate Blood Pressure 194/73 176/74 O2 Sat by Pulse 98 98 Oximetry Medical Decision Making - Medical Decision Making This is an 84-year-old female who presents to the emergency department for abdominal pain. Was pt. sent in by a medical professional or institution? @ -No Did you speak to anyone other than the patient for history? @ -No Did you review nursing and triage notes? @ -Yes, and I agree, it is accurate with regards to the patient's symptoms. Were old charts reviewed? @ -No Differential Diagnosis? @ -Differential Abdominal Pain Women: Appendicitis, Cholecystitis, diverticulosis, ischemic bowel, pancreatitis, hepatitis, UTI, gastroenteritis, AAA, incarcerated hernia, bowel obstruction, constipation, inflammatory bowel, hepatitis, peptic ulcer disease, splenic infarction, perforated viscus, vulvitis, ovarian torsion, PID, kidney stone, placenta abruption, this is not meant to be an all-inclusive list EKG interpreted by me (3pts min.)? @ -EKG interpreted by me demonstrating the following: Sinus rhythm. Ventricular rate 64 bpm, VT interval 157 ms, QRS duration 98 ms, QTc 425 ms. X-rays interpreted by me (1pt min.)? @ -Not obtained CT interpreted by me (1pt min.)? @ -CT scan of the abdomen and pelvis obtained. My interpretation identifies moderate stool burden. U/S interpreted by me (1pt. min.)? @ -Gallbladder ultrasound obtained. My interpretation identifies no evidence of cholelithiasis. What testing was considered but not performed? (CT, X-rays, U/S, labs)? Why? @ -None What meds were considered but not given? Why? @ -None Did you discuss the management of the patient with other professionals? @ -No Did you reconcile home meds? @ -No Was smoking cessation discussed for >3mins.? @ -No Was critical care preformed (if so, how long)? @ -No Were there social determinants of health that impacted care today? How? (Homelessness, low income, unemployed, alcoholism, drug addiction, transportation, low edu. Level, literacy, decrease access to med. care, alf, rehab)? @ -No Was there de-escalation of care discussed even if they declined? (Discuss DNR or withdrawal of care, Hospice)? @ -No What co-morbidities impacted this encounter? (DM, HTN, Smoking, COPD, CAD, Cancer, CVA, Hep., AIDS, mental health diagnosis, sleep apnea, morbid obesity)? @ -DM, HLD Was patient admitted / discharged? @ -Discharged. Lab work demonstrates signs of dehydration and was otherwise relatively unremarkable. Urinalysis has some elevation in white blood cells but is otherwise negative for signs of infection. This appears to be a recurrent presentation to her urine, and urine cultures do not end up growing any bacteria. Will thus avoid treatment at this time. CT scan of the abdomen and pelvis demonstrates mild diffuse gastric wall thickening that could be due to nondistention or mild chronic gastritis. There is question of thickening at the GE junction where direct visualization may be warranted. There are also numerous scattered mesenteric lymph nodes that may reflect mesenteric adenitis. Gallbladder ultrasound obtained as well due to patient's pain in the epigastric region, and this was unremarkable. Findings reviewed with the patient. States that she did have an appointment with Dr. Flores, GI, that had to be canceled. Advised she contact her to have this rescheduled as she will likely need an EGD and colonoscopy given her recurrent symptoms and findings on CT scan. She is already taking a PPI, and symptoms may warrant more aggressive gastritis treatm ent. She was started on famotidine and Reglan for further management. Lactulose prescribed for constipation. Otherwise advised close follow-up with her PCP. Patient discharged home in stable condition. Case discussed with ED attending Dr. Sen. Return precautions reviewed in depth, the patient is instructed to return to the emergency department with any new, worsening, or concerning symptoms. Patient verbalized understanding. Undiagnosed new problem with uncertain prognosis? @ -None Drug Therapy requiring intensive monitoring for toxicity (Heparin, Nitro, Insulin, Cardizem)? @ -None Were any procedures done? @ -None Diagnosis/symptom? @ -Abdominal pain, constipation Acute, or Chronic, or Acute on Chronic? @ -Chronic Uncomplicated (without systemic symptoms) or Complicated (systemic symptoms)? @ -Uncomplicated Side effects of treatment? @ -None Exacerbation, Progression, or Severe Exacerbation] @ -Exacerbation Poses a threat to life or bodily function? @ -Unlikely - Lab Data Result diagrams: 04/22/24 10:18 04/22/24 10:18 Lab Results 04/22/24 04/22/24 04/22/24 Range/Units 10:18 10:18 10:18 WBC 9.7 (3.8-10.6) k/uL RBC 4.52 (3.80-5.40) m/uL Hgb 13.2 (11.4-16.0) gm/dL Hct 41.8 (34.0-46.0) % MCV 92.4 (80.0-100.0) fL MCH 29.3 (25.0-35.0) pg MCHC 31.7 (31.0-37.0) g/dL RDW 13.2 (11.5-15.5) % Plt Count 381 (150-450) k/uL MPV 7.8 Neutrophils % 57 % Lymphocytes % 30 % Monocytes % 8 % Eosinophils % 2 % Basophils % 1 % Neutrophils # 5.6 (1.3-7.7) k/uL Lymphocytes # 2.9 (1.0-4.8) k/uL Monocytes # 0.8 (0-1.0) k/uL Eosinophils # 0.2 (0-0.7) k/uL Basophils # 0.1 (0-0.2) k/uL Hypochromasia Slight Sodium 141 (137-145) mmol/L Potassium 3.9 (3.5-5.1) mmol/L Chloride 102 (98-107) mmol/L Carbon Dioxide 32 H (22-30) mmol/L Anion Gap 7 mmol/L BUN 21 H (7-17) mg/dL Creatinine 0.72 (0.52-1.04) mg/dL Est GFR (CKD-EPI)AfAm 89 (>60 ml/min/1.73 sqM) Est GFR (CKD-EPI)NonAf 77 (>60 ml/min/1.73 sqM) Glucose 160 H (74-99) mg/dL Plasma Lactic Acid Yuriy (0.7-2.0) mmol/L Calcium 9.5 (8.4-10.2) mg/dL Total Bilirubin 0.7 (0.2-1.3) mg/dL AST 32 (14-36) U/L ALT 31 (4-34) U/L Alkaline Phosphatase 62 (38-126) U/L Total Protein 7.0 (6.3-8.2) g/dL Albumin 4.2 (3.5-5.0) g/dL Amylase 56 (30-110) U/L Lipase 113 (23-300) U/L Urine Color Colorless Urine Appearance Clear (Clear) Urine pH 6.0 (5.0-8.0) Ur Specific [place] 1.013 (1.001-1.035) Urine Protein Negative (Negative) Urine Glucose (UA) Negative (Negative) Urine Ketones Negative (Negative) Urine Blood Negative (Negative) Urine Nitrite Negative (Negative) Urine Bilirubin Negative (Negative) Urine Urobilinogen <2.0 (<2.0) mg/dL Ur Leukocyte Esterase Large H (Negative) Urine RBC 1 (0-5) /hpf Urine WBC 9 H (0-5) /hpf Ur Squamous Epith Cells 2 (0-4) /hpf Urine Bacteria Rare H (None) /hpf Urine Mucus Rare H (None) /hpf 04/22/24 Range/Units 10:18 WBC (3.8-10.6) k/uL RBC (3.80-5.40) m/uL Hgb (11.4-16.0) gm/dL Hct (34.0-46.0) % MCV (80.0-100.0) fL MCH (25.0-35.0) pg MCHC (31.0-37.0) g/dL RDW (11.5-15.5) % Plt Count (150-450) k/uL MPV Neutrophils % % Lymphocytes % % Monocytes % % Eosinophils % % Basophils % % Neutrophils # (1.3-7.7) k/uL Lymphocytes # (1.0-4.8) k/uL Monocytes # (0-1.0) k/uL Eosinophils # (0-0.7) k/uL Basophils # (0-0.2) k/uL Hypochromasia Sodium (137-145) mmol/L Potassium (3.5-5.1) mmol/L Chloride (98-107) mmol/L Carbon Dioxide (22-30) mmol/L Anion Gap mmol/L BUN (7-17) mg/dL Creatinine (0.52-1.04) mg/dL Est GFR (CKD-EPI)AfAm (>60 ml/min/1.73 sqM) Est GFR (CKD-EPI)NonAf (>60 ml/min/1.73 sqM) Glucose (74-99) mg/dL Plasma Lactic Acid Yuriy 0.8 (0.7-2.0) mmol/L Calcium (8.4-10.2) mg/dL Total Bilirubin (0.2-1.3) mg/dL AST (14-36) U/L ALT (4-34) U/L Alkaline Phosphatase (38-126) U/L Total Protein (6.3-8.2) g/dL Albumin (3.5-5.0) g/dL Amylase (30-110) U/L Lipase (23-300) U/L Urine Color Urine Appearance (Clear) Urine pH (5.0-8.0) Ur Specific [place] (1.001-1.035) Urine Protein (Negative) Urine Glucose (UA) (Negative) Urine Ketones (Negative) Urine Blood (Negative) Urine Nitrite (Negative) Urine Bilirubin (Negative) Urine Urobilinogen (<2.0) mg/dL Ur Leukocyte Esterase (Negative) Urine RBC (0-5) /hpf Urine WBC (0-5) /hpf Ur Squamous Epith Cells (0-4) /hpf Urine Bacteria (None) /hpf Urine Mucus (None) /hpf - Radiology Data Radiology results: report reviewed, image reviewed Disposition Clinical Impression: Abdominal pain, Constipation, Gastritis Disposition: HOME SELF-CARE Instructions (If sedation given, give patient instructions): Gastritis (ED), Constipation (ED), Abdominal Pain (ED) Additional Instructions: Return to the emergency department with any new, worsening, or concerning symptoms. Begin taking the famotidine once daily. Take the lactulose daily to help with the constipation. It may take a couple of days before you notice improvement. You can take the Reglan up to every 6 hours to help with any abdominal discomfort or nausea. Follow-up with your primary care provider and Dr. Flores. Prescriptions: Famotidine 40 mg PO DAILY #30 tablet Lactulose 10 - 20 gm PO DAILY PRN #473 ml PRN Reason: Constipation Metoclopramide [Reglan] 5 mg PO Q6H PRN #30 tab PRN Reason: Gi Upset Is patient prescribed a controlled substance at d/c from ED?: No Referrals: Eulogio Mathew MD [Primary Care Provider] - 1-2 days Monica Flores MD [STAFF PHYSICIAN] - 1-2 days Time of Disposition: 14:24
[2024-04-22 10:41] LABS: Basophils # (A) 0.1 k/uL (0-0.2); Basophils % (A) 1 %; Eosinophils # (A) 0.2 k/uL (0-0.7); Eosinophils % (A) 2 %; HCT 41.8 % (34.0-46.0); HGB 13.2 gm/dL (11.4-16.0); Hypochromasia Slight; Lymphocytes # (A) 2.9 k/uL (1.0-4.8); Lymphocytes % (A) 30 %; MCH 29.3 pg (25.0-35.0); MCHC 31.7 g/dL (31.0-37.0); MCV 92.4 fL (80.0-100.0); Mean Platelet Volume 7.8; Monocytes # (A) 0.8 k/uL (0-1.0); Monocytes % (A) 8 %; Neutrophils # (A) 5.6 k/uL (1.3-7.7); Neutrophils % (A) 57 %; Platelet Count 381 k/uL (150-450); RBC 4.52 m/uL (3.80-5.40); RDW 13.2 % (11.5-15.5); WBC 9.7 k/uL (3.8-10.6)
[2024-04-22 10:51] LABS: ALT 31 U/L (4-34); AST 32 U/L (14-36); African American GFR (CKD) 89 (>60 ml/min/1.73 sqM); Albumin 4.2 g/dL (3.5-5.0); Alkaline Phosphatase 62 U/L (38-126); Amylase 56 U/L (30-110); Anion Gap 7 mmol/L; Blood Urea Nitrogen 21 mg/dL (7-17); Calcium 9.5 mg/dL (8.4-10.2); Carbon Dioxide 32 mmol/L (22-30); Chloride 102 mmol/L (98-107); Glucose 160 mg/dL (74-99); Lipase 113 U/L (23-300); Non-African American GFR(CKD) 77 (>60 ml/min/1.73 sqM); Potassium 3.9 mmol/L (3.5-5.1); Sodium 141 mmol/L (137-145); Total Bilirubin 0.7 mg/dL (0.2-1.3)
[2024-04-22 10:52] LABS: Appearance,Urine Clear (Clear); Bacteria,Urine Rare /hpf; Bilirubin,Urine Negative (Negative); Blood,Urine Negative (Negative); Color,Urine Colorless; Glucose,Urine (UA) Negative (Negative); Ketones,Urine Negative (Negative); Leukocyte Esterase,Urine Large (Negative); Mucus,Urine Rare /hpf; Nitrite,Urine Negative (Negative); Protein,Urine Negative (Negative); RBC,Urine 1 /hpf (0-5); Specific Gravity,Urine 1.013 (1.001-1.035); Squamous Epithelial Cell,Urine 2 /hpf (0-4); Urobilinogen,Urine <2.0 mg/dL (<2.0); WBC,Urine 9 /hpf (0-5)
--- NOTE | 2024-04-22 12:05 | CT ---
EXAMINATION TYPE: CT abdomen pelvis w con DATE OF EXAM: 04/22/2024 COMPARISON: 02/01/2024 HISTORY: 84 year-old female epigastric pain, ABD BLOATING TECHNIQUE: Contiguous axial scanning of the abdomen and pelvis following administration of 100 ml Iso liyah 300 IV contrast. Delayed images through the kidneys and coronal/sagittal reconstructions perform ed. CT DLP: 573.3 mGycm Automated exposure control for dose reduction was used. FINDINGS: Heart is normal size without pericardial effusion. Prominent RCA coronary artery calcificat ions. Mild emphysematous changes in the lower lungs with strandy atelectasis. Similar mild mural thickening GE junction probably old redundancy given its oval appearance. No focal liver lesion or biliary ductal dilatation. Portal venous system is patent. Gallbladder, adrenal glands, right kidney, and pancreas within normal limits. Tiny 8 mm cyst mid left kidney. Mild diffuse gastric fold thickening versus nondistention. Numerous scattered mesenteric lymph nodes measuring up to 8 mm there is slightly more numerous than p rior exam. No retroperitoneal adenopathy. [id number] prostatic calcifications abdominal aorta a nd common iliac arteries. No dilated small bowel, free fluid, or free air. There is mild to moderate stool burden. Sigmoid diverticulosis. No pericolonic inflammatory change. Bladder not distended. There is pelvic lymph nodes. Uterus surgically absent. Suspect small bilateral ovaries. No abnormal fluid collection in the pelvis or pelvic lymphadenopathy. Bones: Moderate to severe degenerative change in both hips. Advanced spondylotic changes lumbar spine. Nearly grade 2 retrolisthesis L2-L3. Prominent grade 1 ant erolisthesis L4-L5. IMPRESSION: 1. MILD DIFFUSE GASTRIC FOLD THICKENING COULD BE DUE TO NONDISTENTION OR MILD CHRONIC GASTRITIS. THE QUESTIONABLE MURAL THICKENING AT THE GE JUNCTION REMAINS UNCHANGED, PROBABLY MUCOSAL REDUNDANCY. DIRE CT VISUALIZATION IF PATIENT'S SYMPTOMS WARRANT. 2. NUMEROUS SCATTERED MESENTERIC LYMPH NODES MEASURING UP TO 8 MM, SLIGHTLY MORE NUMEROUS THAN PRIOR EXAM. FINDINGS MAY REFLECT MESENTERIC ADENITIS. SIX-MONTH FOLLOW-UP CT TO ENSURE STABILITY/RESOLUTION . 3. SIGMOID DIVERTICULOSIS WITHOUT ACUTE DIVERTICULITIS. [facility], , 04/22/2024 12:03 PM
--- NOTE | 2024-04-22 12:28 | US ---
EXAMINATION TYPE: US gallbladder DATE OF EXAM: 04/22/2024 COMPARISON: NONE CLINICAL INDICATION: Female, 84 years old with history of RUQ pain; Intermittent abdominal pain for 1 year. constipation TECHNIQUE: Multiple sonographic images of the right upper quadrant are obtained. FINDINGS: EXAM MEASUREMENTS: Liver Length: 14.6 cm Gallbladder Wall: 0.2 cm CBD: 0.4 cm Right Kidney: 9.8 x 3.7 x 3.5 cm Pancreas: Tail obscured by overlying bowel gas Liver: appears wnl Gallbladder: no evidence of stones Evidence for sonographic Connell's sign: no CBD: appears wnl Right Kidney: no evidence of hydronephrosis IMPRESSION: Unremarkable sonographic examination of the right upper quadrant. [facility], , 04/22/2024 12:26 PM
[2024-04-22 13:28] VITALS: BP 176/74; PULSE 65; RESP 18
[2024-04-22] MEDS: KETOROLAC 15 MG/ML 1 ML VIAL IVP STA (13:28)
[2024-04-22] MEDS: LORazepam 2 MG/ML INJ IV STA (13:29)
[2024-04-22] MEDS: METOCLOPRAMIDE 5 MG/ML 2 ML VIAL IVP STA ×2 (13:31→13:35)
[2024-04-22] MEDS: SODIUM CHLORIDE 0.9% 500 ML 500 ML IV STA (13:33)
[2024-04-22] MEDS: PANTOPRAZOLE 40 MG/10 ML VIAL IVP STA (13:35)
[2024-04-22] MEDS: PEG 3350 (236 GM/BTL) + LYTES 4,000 ML BOTTLE PO ONE (15:07)
== END 2024-04-22 15:08 | disposition home or self-care (01) ==
LOC: EC 09:14
CPT/HCPCS: 36415; 74177; 76705; 80053; 81001; 82150; 83605; 83690; 85025; 87077; 87086; 87186; 93005; 99284

== ENCOUNTER → 2024-06-08 | Outpatient (CLI) | payer MEDICARE ==
--- NOTE | 2024-06-09 09:46 | MR ---
EXAMINATION TYPE: MR abdomen wo/w con DATE OF EXAM: 06/08/2024 3:30 PM COMPARISON: 04/22/2024 CLINICAL INDICATION: Female, 84 years old with history of, epigastric pain, ULQ, history of spleen re moved. TECHNIQUE: Multiplanar multi-sequence imaging was performed without contrast. Post contrast imaging was performed. Post IV contrast subtraction images were also submitted for review. IV Contrast: 5 cc Gadavist FINDINGS: LOWER CHEST: The heart is mildly enlarged for size. ABDOMEN Liver: No evidence for hepatic steatosis or cirrhosis. Gallbladder and Bile ducts: No evidence for ductal dilation, or biliary stricture or evidence of chol edocholithiasis. The gallbladder is within normal limits. Pancreas: No ductal dilation. No evidence for solid mass. Pancreatic divisum morphology to the pancre atic ducts Spleen: Spleen is surgically absent. Adrenal glands: Unremarkable. Kidneys: No evidence for obstructive uropathy. No suspicious renal masses. Left simple appearing esha l cysts with high T2 signal measuring 10 mm. Stomach and Bowel motion artifact near the diaphragm: There is a small hiatal hernia present. No evid ence for bowel wall thickening or evidence for obstruction. Is large amount stool throughout the colo n. Retroperitoneum/Peritoneum: No evidence of pneumoperitoneum or free fluid. Vasculature: No aortic aneurysm. Musculoskeletal: The osseous structures appear intact. Lymph Nodes: No gross evidence for lymphadenopathy. Abdominal wall: Unremarkable. IMPRESSION: 1. Postsplenectomy changes No evidence for acute abdominal process. 2. Motion artifact in the diaphragm with small hiatal hernia present. 3. Pancreatic divisum. 4. Mild cardiomegaly. 5. Large amount stool throughout the colon. [facility], , 06/09/2024 9:44 AM
== END | disposition home or self-care (01) ==
LOC: RADMRIMAIN 14:17
PROVIDERS: ATTEND Internal Medicine Gastroenterology
DX: K44.9 Diaphragmatic hernia without obstruction or gangrene (principal); Q45.3 Other congenital malformations of pancreas and pancreatic duct; I51.7 Cardiomegaly; R19.5 Other fecal abnormalities
CPT/HCPCS: 74183; A9585

== ENCOUNTER 2024-08-03 08:17 | Emergency (ER) | payer MEDICARE ==
[2024-08-03 08:40] VITALS: RESP 18
--- NOTE | 2024-08-03 09:28 | ED ---
General Adult HPI - General Chief complaint: Dental/Oral Stated complaint: poss drug reaction Time Seen by Provider: 08/03/24 08:42 Source: patient, family, RN notes reviewed Mode of arrival: wheelchair Limitations: no limitations - History of Present Illness Initial comments: Patient is an 84-year-old female presenting to the emergency department with concerns for reaction to cephalosporin antibiotic. Patient has had 3 urinary tract infections over the past 6 months. Patient had a problem with this medication last time. Patient had nitrofurantoin and the second time however did not work and was started on cephalosporin again. Patient states when she woke this morning her blood pressure was high. Patient also is concerned that there could be sores in her mouth and that her hands feel red and tingly. Patient admits to feeling anxious and states her symptoms did not improve with Xanax. Patient also had some mild blurry vision this morning that also improved with her eyedrops. - Related Data Home Medications Medication Instructions Recorded Confirmed ALPRAZolam [Xanax] 0.125 mg PO BID 07/05/16 03/05/24 Multivit-Min/Iron/Folic/Lutein 1 tab PO DAILY 08/08/20 03/05/24 [Centrum Silver Women Tablet] Pantoprazole [Protonix] 40 mg PO HS 08/08/20 03/05/24 Vit C/E/Zn/Coppr/Lutein/Zeaxan 1 tab PO BID 08/08/20 03/05/24 [Preservision Areds 2 Softgel] Cholecalciferol [Vitamin D3 (25 25 mcg PO DAILY 10/28/23 03/05/24 Mcg = 1000 Iu)] Collagen Powder 2 scoop PO DAILY 10/28/23 03/05/24 Rosuvastatin Calcium 5 mg PO W/SUPPER 10/28/23 03/05/24 Bifidobacterium Infantis [Align] 4 mg PO DAILY 03/05/24 Multivit-Min/Iron/Folic/Lutein 1 each PO DAILY 03/05/24 [Centrum Silver Women Tablet] metFORMIN HCL 500 mg PO DAILY 03/05/24 Previous Rx's Medication Instructions Recorded Famotidine 40 mg PO DAILY #30 tablet 04/22/24 Lactulose 10 - 20 gm PO DAILY PRN #473 ml 04/22/24 Metoclopramide [Reglan] 5 mg PO Q6H PRN #30 tab 04/22/24 Ciprofloxacin HCl [Cipro] 250 mg PO BID #20 tab 08/03/24 Allergies Allergy/AdvReac Type Severity Reaction Status Date / Time No Known Allergies Allergy Verified 08/03/24 08:32 Review of Systems ROS Statement: Those systems with pertinent positive or pertinent negative responses have been documented in the HPI. ROS Other: All systems not noted in ROS Statement are negative. Constitutional: Denies: fever Eyes: Denies: eye pain ENT: Denies: ear pain Genitourinary: Reports: urgency, frequency Past Medical History Past Medical History: Diabetes Mellitus, Hyperlipidemia, Osteoarthritis (OA) Additional Past Medical History / Comment(s): . 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 HISTORY IN FAMILY: CELIAC. History of Any Multi-Drug Resistant Organisms: None Reported Past Surgical History: Hysterectomy Additional Past Surgical History / Comment(s): Spleenectomy. hiatal hernia Past Anesthesia/Blood Transfusion Reactions: No Reported Reaction Past Psychological History: Anxiety Smoking Status: Never smoker Past Alcohol Use History: None Reported Past Drug Use History: None Reported General Exam Limitations: no limitations General appearance: alert, in no apparent distress Head exam: Present: normocephalic Eye exam: Present: normal appearance ENT exam: Present: normal oropharynx, other (No lesions visualized in the oropharynx) Neck exam: Present: normal inspection Respiratory exam: Present: normal lung sounds bilaterally Cardiovascular Exam: Present: regular rate, normal rhythm GI/Abdominal exam: Present: soft. Absent: tenderness Extremities exam: Present: normal inspection Neurological exam: Present: alert. Absent: motor sensory deficit Psychiatric exam: Present: normal affect, normal mood Skin exam: Present: normal color. Absent: erythema Course Vital Signs 08/03/24 08:33 Temperature 97.5 F L Pulse Rate 78 Respiratory 18 Rate Blood Pressure 150/73 O2 Sat by Pulse 98 Oximetry Medical Decision Making - Medical Decision Making Was pt. sent in by a medical professional or institution (, PA, PROPERTY DEVELOPER, urgent care, hospital, or detention...) When possible be specific @ -No Did you speak to anyone other than the patient for history (EMS, parent, family, police, friend...)? What history was obtained from this source @ -Family is present helps provide history including antibiotics that patient took in her history of anxiety Did you review nursing and triage notes (agree or disagree)? Why? @ -I reviewed and agree with nursing and triage notes Were old charts reviewed (outside hosp., previous admission, EMS record, old EKG, old radiological studies, urgent care reports/EKG's, detention records)? Report findings @ -No old charts were reviewed Differential Diagnosis (chest pain, altered mental status, abdominal pain women, abdominal pain men, vaginal bleeding, weakness, fever, dyspnea, syncope, headache, dizziness, GI bleed, back pain, seizure, CVA, palpatations, mental health, musculoskeletal)? @ -Differential Abdominal Pain Women: Appendicitis, Cholecystitis, diverticulosis, ischemic bowel, pancreatitis, hepatitis, UTI, gastroenteritis, AAA, incarcerated hernia, bowel obstruction, constipation, inflammatory bowel, hepatitis, peptic ulcer disease, splenic infarction, perforated viscus, vulvitis, ovarian torsion, PID, kidney stone, placenta abruption, this is not meant to be an all-inclusive list EKG interpreted by me (3pts min.). @ -As above X-rays interpreted by me (1pt min.). @ -None done CT interpreted by me (1pt min.). @ -None done U/S interpreted by me (1pt. min.). @ -None done What testing was considered but not performed or refused? (CT, X-rays, U/S, labs)? Why? @ -Urine culture ordered What meds were considered but not given or refused? Why? @ -None Did you discuss the management of the patient with other professionals (professionals i.e. , PA, PROPERTY DEVELOPER, lab, RT, psych nurse, social human services assistants, almond cutting machine tender, teacher, national service officer, classification case manager)? Give summary @ -No Was smoking cessation discussed for >3mins.? @ -No Was critical care preformed (if so, how long)? @ -No Were there social determinants of health that impacted care today? How? (Homelessness, low income, unemployed, alcoholism, drug addiction, transportation, low edu. Level, literacy, decrease access to med. care, long term, rehab)? @ -No Was there de-escalation of care discussed even if they declined (Discuss DNR or withdrawal of care, Hospice)? DNR status @ -No What co-morbidities impacted this encounter? (DM, HTN, Smoking, COPD, CAD, Cancer, CVA, ARF, Chemo, Hep., AIDS, mental health diagnosis, sleep apnea, morbi d obesity)? @ -None Was patient admitted / discharged? Hospital course, mention meds given and route, prescriptions, significant lab abnormalities, going to OR and other pertinent info. @ -Patient presents with concerns for reaction to her antibiotic. This will be changed. Patient will be discharged and urine culture ordered. Patient and family updated Undiagnosed new problem with uncertain prognosis? @ -No Drug Therapy requiring intensive monitoring for toxicity (Heparin, Nitro, Insulin, Cardizem)? @ -No Were any procedures done? @ -No Diagnosis/symptom? @ -Cystitis Acute, or Chronic, or Acute on Chronic? @ -Acute Uncomplicated (without systemic symptoms) or Complicated (systemic symptoms)? @ -Default Side effects of treatment? @ -No Exacerbation, Progression, or Severe Exacerbation? @ -No Poses a threat to life or bodily function? How? (Chest pain, [place], [place], pneumonia, PE, COPD, DKA, ARF, appy, cholecystitis, CVA, Diverticulitis, Homicidal, Suicidal, threat to staff... and all critical care pts) @ -No Disposition Clinical Impression: Cystitis Disposition: HOME SELF-CARE Condition: Stable Instructions (If sedation given, give patient instructions): Urinary Tract Infection in Women (ED) Additional Instructions: Please do follow-up with your primary care physician in the next day or 2 for recheck. Please also follow-up with urology as scheduled. Return for fevers, increased pain, uncontrolled vomiting, worsening symptoms or any other concerns. New prescription sent to pharmacy. Prescriptions: Ciprofloxacin HCl [Cipro] 250 mg PO BID #20 tab Is patient prescribed a controlled substance at d/c from ED?: No Referrals: Eulogio Mathew MD [Primary Care Provider] - 1-2 days Time of Disposition: 09:27
[2024-08-03 09:34] LABS: Appearance,Urine Clear (Clear); Bilirubin,Urine Negative (Negative); Blood,Urine Negative (Negative); Color,Urine Colorless; Glucose,Urine (UA) Negative (Negative); Ketones,Urine Negative (Negative); Leukocyte Esterase,Urine Small (Negative); Mucus,Urine Rare /hpf; Nitrite,Urine Negative (Negative); PH, Urine 5.5 (5.0-8.0); Protein,Urine Negative (Negative); Specific Gravity,Urine 1.009 (1.001-1.035); Squamous Epithelial Cell,Urine 1 /hpf (0-4); Urobilinogen,Urine <2.0 mg/dL (<2.0); WBC,Urine 2 /hpf (0-5)
[2024-08-03 09:40] VITALS: BP 144/81; PULSE 74; TEMP 97.7
== END 2024-08-03 09:40 | disposition home or self-care (01) ==
LOC: EC 08:17
DX: N30.90 Cystitis, unspecified without hematuria (principal)
CPT/HCPCS: 81001; 87086; 99283